=== PATIENT | male | born 1970 | race Caucasian/White ===

== ENCOUNTER 2022-05-16 15:05 | Emergency (ER) | payer OTHER, MEDICAID, SELFPAY ==
[2022-05-16 15:12] VITALS: BP 161/89; PULSE 80; RESP 18; TEMP 36.8; O2SAT 97; BMI 23.7
--- NOTE | 2022-05-16 18:30 | PC.NURSE ---
pt had peeled his bandages off, new bandage placed.
--- NOTE | 2022-05-16 21:01 | ED_ITS ---
HPI - Skin/Abscess/Foreign Bdy General Chief complaint: Skin/Abscess/Foreign Body Stated complaint: Does not feel good, wounds right, thinks infected Time Seen by Provider: 05/16/22 21:00 Source: patient Mode of arrival: Ambulatory Limitations: no limitations History of Present Illness HPI narrative: Patient is a 52-year-old male who presents with right ring finger swelling and pain. 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 He denies any fever but feels like his hand may have had fever and itself. He is able to move his finger but it does hurt. His hand is quite swollen his hands are extremely dirty. He does not go to doctors. He denies fever chills chest pain or shortness of breath. It is weeping serosanguineous fluid like there was a blister that has now opened. He says that happened in the waiting room. Related Data Previous Rx's Medication Instructions Recorded doxycycline hyclate 100 mg capsule 100 mg PO BID #20 caps 05/16/22 Allergies Allergy/AdvReac Type Severity Reaction Status Date / Time acetaminophen [From Tylenol] Allergy Verified 05/16/22 21:12 aspirin Allergy Verified 05/16/22 21:13 Penicillins Allergy Verified 05/16/22 21:12 Review of Systems Review of Systems Narrative: GENERAL: Denies chills,fever HEENT: Denies throat pain RESPIRATORY: Denies dyspnea, cough, wheezing CARDIOVASCULAR: Denies chest pain, palpitations GASTROINTESTINAL: Denies nausea, vomiting MUSCULOSKELETAL: Denies extremity pain, injury SKIN: See HPI NEUROLOGIC: Denies weakness, dizziness, headache, numbness 8 point review of systems is negative except for those stated above and HPI Patient History Social History Smoking Status: Current every day smoker Smoking Status: Current every day smoker Substance Use Type: marijuana, heroin, opiates, methamphetamine and other Exam Initial Vital Signs Initial Vital Signs: Vital Signs Temperature 98.3 F 05/16/22 15:12 Pulse Rate 80 05/16/22 15:12 Respiratory Rate 18 05/16/22 15:12 Blood Pressure 161/89 H 05/16/22 15:12 Pulse Oximetry 97 05/16/22 15:12 Oxygen Delivery Method 05/16/22 15:12 GENERAL: 52-year-old male appears older than stated age HEENT: Head atraumatic,EOMI, pupils reactive, face symmetric, moist mucous membranes CARDIOVASCULAR: Regular rate and rhythm without murmurs, rubs or gallops. RESPIRATORY: Breath sounds equal bilaterally, no wheezes rales or rhonchi. ABDOMEN: Soft, nontender. Normoactive bowel sounds all 4 quadrants. No guarding or rebound. EXTREMITIES: Normal range of motion, no clubbing or edema. Neurovascularly intact NEUROLOGICAL: Alert and oriented x4. SKIN: Right hand swollen mild erythema extremely dirty, right index finger blister noted flex and extend but limited due to pain. Cap refill less than 2 seconds, serosanguineous fluid noted from psych Course Orders Ordered: ED Orders 05/16/22 21:05 XR hand RT min 3V Stat 05/16/22 21:20 Lactate (Lactic Acid) Stat 05/16/22 21:25 CBC Auto Diff [Complete Blood Count AUTO DIFF] Stat CMP [Comprehensive Metabolic Panel] Stat Procalcitonin Stat Discontinued Medications Diphtheria/Tetanus/Acell Pertussis (Tet,Diph,Pertuss(Acell),Vac/Pf 0.5 Ml Syringe) 0.5 ml IM .ONCE ONE Stop: 05/16/22 21:09 Last Admin: 05/16/22 21:34 Dose: 0.5 ml Documented By: MARLYN Doxycycline Hyclate (Doxycycline Hyclate 100 Mg Tablet) 100 mg PO NOW ONE Stop: 05/16/22 22:30 Last Admin: 05/16/22 22:41 Dose: 100 mg Documented By: MARLYN Vital Signs Vital signs: Vital Signs - 8 hr 05/16/22 22:50 Pulse Rate 80 Respiratory Rate 18 Blood Pressure 158/88 H Pulse Oximetry 98 Oxygen Delivery Method Room Air MDM - Skin/Abscess/Foreign Bdy Lab Data Result diagrams: 05/16/22 21:25 05/16/22 21:25 Labs: Lab Results 05/16/22 05/16/22 05/16/22 Range/Units 21:20 21:25 21:25 WBC 15.6 H (4.5-11.0) X10^3/uL RBC 4.60 (4.5-5.9) X10^6/uL Hgb 14.9 (13.5-17.5) g/dL Hct 43.5 (41-53) % MCV 94.5 (80-100) fL MCH 32.3 (26-34) PG MCHC 34.2 (30-36) % RDW 13.0 (11.6-14.8) % Plt Count 344 (150-400) X10^3/uL Neut % (Auto) 76.1 H (50-75) % Lymph % (Auto) 11.7 L (25-40) % [place] % (Auto) 9.2 (3-14) % Eos % (Auto) 2.6 (2-4) % Baso % (Auto) 0.4 (0-2) % Neut # (Auto) 80681 H (8895-6106) /uL Lymph # (Auto) 1800 (6158-7793) /uL [place] # (Auto) 1400 H (0-900) /uL Eos # (Auto) 400 (0-450) /uL Baso # (Auto) 100 (0-100) /uL Sodium 137 (137-145) mmol/L Potassium 4.2 (3.4-5.1) mmol/L Chloride 101 (98-107) mmol/L Carbon Dioxide 28 (22-32) mmol/L BUN 12 (9-20) mg/dL Creatinine 0.54 L (0.66-1.25) mg/dL Estimated GFR > 60 (>60) mL/min BUN/Creatinine Ratio 22.2 H (6-22) Glucose 92 (70-100) mg/dL Lactate 1.1 (0.7-2.1) mmol/L Calcium 9.6 (8.4-10.2) mg/dL Total Bilirubin 0.8 (0.2-1.3) mg/dL AST 73 H (17-59) IU/L ALT 101 H (<50) IU/L Alkaline Phosphatase 106 (38-126) U/L Total Protein 8.2 (6.3-8.2) g/dL Albumin 4.5 (3.5-5.0) g/dL Globulin 3.7 (1.7-4.1) g/dL Albumin/Globulin Ratio 1.2 (1.0-2.8) Procalcitonin (<0.5) ng/mL 05/16/22 Range/Units 21:25 WBC (4.5-11.0) X10^3/uL RBC (4.5-5.9) X10^6/uL Hgb (13.5-17.5) g/dL Hct (41-53) % MCV (80-100) fL MCH (26-34) PG MCHC (30-36) % RDW (11.6-14.8) % Plt Count (150-400) X10^3/uL Neut % (Auto) (50-75) % Lymph % (Auto) (25-40) % [place] % (Auto) (3-14) % Eos % (Auto) (2-4) % Baso % (Auto) (0-2) % Neut # (Auto) (0345-6331) /uL Lymph # (Auto) (4071-5685) /uL [place] # (Auto) (0-900) /uL Eos # (Auto) (0-450) /uL Baso # (Auto) (0-100) /uL Sodium (137-145) mmol/L Potassium (3.4-5.1) mmol/L Chloride (98-107) mmol/L Carbon Dioxide (22-32) mmol/L BUN (9-20) mg/dL Creatinine (0.66-1.25) mg/dL Estimated GFR (>60) mL/min BUN/Creatinine Ratio (6-22) Glucose (70-100) mg/dL Lactate (0.7-2.1) mmol/L Calcium (8.4-10.2) mg/dL Total Bilirubin (0.2-1.3) mg/dL AST (17-59) IU/L ALT (<50) IU/L Alkaline Phosphatase (38-126) U/L Total Protein (6.3-8.2) g/dL Albumin (3.5-5.0) g/dL Globulin (1.7-4.1) g/dL Albumin/Globulin Ratio (1.0-2.8) Procalcitonin 0.12 (<0.5) ng/mL Imaging Data Extremity x-ray #1: Radiologist's Impression: LATOYA Genao [id number] XRay Report Signed Patient: Rory Hickman MR#: [id number] : 1970 Acct:[id number] Age/Sex: 52 / M Date of Service: 05/16/22 Loc: ED Accession Number: [id number] ?? Procedure: XR hand RT min 3V Ordering Provider: Lizbeth Arevalo D.O. PROCEDURE:? XR HAND RT MIN 3V ? INDICATIONS:? ring finger swelling pain ?injury ? TECHNIQUE:? Three views of the right hand acquired.? ? COMPARISON:? None. ? FINDINGS:? ? Bones:? No acute fractures or dislocations.? There is a corticated ossicle cons istent with a prior chronic fracture of the radial styloid.? Carpal bones are normally aligned.? No suspicious bony lesions.? ? Soft tissues:? No radiopaque foreign bodies.? No suspicious soft tissue calcifications.? ? ? IMPRESSION:? ? 1. No acute fractures or radiopaque foreign bodies. ? ? Dictated by: Cedrick Patel M.D. on 05/16/2022 at 23:01 ? [facility] Narrative Medical decision making narrative: At this time patient's hand is swollen he has an obvious wound on his finger. He able to move it head does hurt a little some possible early flexor tenosynovitis. He is able to move it. X-rays reviewed by myself no gross fo reign body or bony abnormality. He is not septic he is afebrile normal lactic acid and procalcitonin. I have discussed with him it very bluntly need for close monitoring and to return if it is getting worse at all. He understands this. I discussed all findings with the patient , Education has been performed regarding treatment plan, diagnosis, warning signs and symptoms and all concerns have been addressed. Verbally agree with and understood all of the above. Discharge Plan Departure Patient Disposition: Home Clinical Impression: Cellulitis Instructions: DI for Cellulitis -- Adult Activity Restrictions/Additional Instructions: *You have been diagnosed with cellulitis of finger *What to do: Please keep hand clean with soap and water. Monitor very closely this can become a very serious infection requiring surgery. At this time it does not. Keep hand elevated. Apply ice 20-30 minutes at a time. *Continue to take medications as directed Doxycycline 100 mg twice a day for 10 days--> SENT TO [facility] Motrin 600 mg every 6 hours if needed for mild moderate pain *Follow up with your primary care provider in 2-3 days or call [phone] *Return to ER if you should have increased pain increased swelling inability to move, fever or any new, worsening or concerning symptoms Prescriptions: New doxycycline hyclate 100 mg capsule 100 mg PO BID Qty: 20 0RF Visit Report Forms: Patient Portal/API
--- NOTE | 2022-05-16 21:05 | DI.RAD.S_ITS ---
PROCEDURE: XR HAND RT MIN 3V INDICATIONS: ring finger swelling pain ?injury TECHNIQUE: Three views of the right hand acquired. COMPARISON: None. FINDINGS: Bones: No acute fractures or dislocations. There is a corticated ossicle consistent with a prior chronic fracture of the radial styloid. Carpal bones are normally aligned. No suspicious bony lesions. Soft tissues: No radiopaque foreign bodies. No suspicious soft tissue calcifications. IMPRESSION: 1. No acute fractures or radiopaque foreign bodies. Dictated by: Cedrick Patel M.D. on 05/16/2022 at 23:01 Approved by: Cedrick Patel M.D. on 05/16/2022 at 23:04
[2022-05-16] MEDS: TET,DIPH,PERTUSS(ACELL),VAC/PF 0.5 ML SYRINGE IM (21:34)
[2022-05-16 21:37] LABS: Add Manual Diff / Slide Review NO; Basophils Absolute Auto 100 /uL (0-100); Basophils Percent Auto 0.4 % (0-2); Eosinophils Absolute Auto 400 /uL (0-450); Eosinophils Percent Auto 2.6 % (2-4); Hematocrit 43.5 % (41-53); Hemoglobin 14.9 g/dL (13.5-17.5); Lymphocytes Absolute Auto 1800 /uL (1100-4500); Lymphocytes Percent Auto 11.7 % (25-40); Mean Corpuscular HGB Conc 34.2 % (30-36); Mean Corpuscular Hemoglobin 32.3 PG (26-34); Mean Corpuscular Volume 94.5 fL (80-100); Monocytes Absolute Auto 1400 /uL (0-900); Monocytes Percent Auto 9.2 % (3-14); Neutrophils Absolute Auto 11900 /uL (1500-7000); Neutrophils Percent Auto 76.1 % (50-75); Platelet Count 344 X10^3/uL (150-400); White Blood Cell Count 15.6 X10^3/uL (4.5-11.0)
[2022-05-16 21:51] LABS: Alanine Aminotransferase 101 IU/L (<50); Albumin 4.5 g/dL (3.5-5.0); Albumin Globulin Ratio 1.2 (1.0-2.8); Alkaline Phosphatase 106 U/L (38-126); Aspartate Aminotransferase 73 IU/L (17-59); BUN Creatinine Ratio 22.2 (6-22); Bilirubin Total 0.8 mg/dL (0.2-1.3); Blood Urea Nitrogen 12 mg/dL (9-20); Calcium 9.6 mg/dL (8.4-10.2); Carbon Dioxide 28 mmol/L (22-32); Chloride 101 mmol/L (98-107); Estimated Glomerular Filt Rate > 60 mL/min (>60); Globulin 3.7 g/dL (1.7-4.1); Glucose 92 mg/dL (70-100); HEMOLYSIS 31 (0-50); Potassium 4.2 mmol/L (3.4-5.1); Sodium 137 mmol/L (137-145); Total Protein 8.2 g/dL (6.3-8.2)
[2022-05-16 22:05] LABS: Lactate (Lactic Acid) 1.1 mmol/L (0.7-2.1)
[2022-05-16 22:06] LABS: Procalcitonin 0.12 ng/mL (<0.5)
[2022-05-16] MEDS: DOXYCYCLINE HYCLATE 100 MG TABLET PO (22:41)
[2022-05-16 22:50] VITALS: BP 158/88; PULSE 80; RESP 18; O2SAT 98
== END 2022-05-16 22:51 | disposition home or self-care (01) ==
PROVIDERS: Emergency Provider Emergency Medicine
DX: L03.011 Cellulitis of right finger (principal); Z23 Encounter for immunization
CPT/HCPCS: 73130; 80053; 83605; 84145; 85025; 90471; 99283; 90715

== ENCOUNTER 2022-06-24 18:06 | Emergency (ER) | payer OTHER, MEDICAID, SELFPAY ==
[2022-06-24 18:10] VITALS: BP 135/82; PULSE 112; RESP 16; TEMP 36.9; O2SAT 100; BMI 23.7
== END 2022-06-24 19:47 | disposition left against medical advice (07) ==
PROVIDERS: Emergency Provider Emergency Medicine
DX: L08.9 Local infection of the skin and subcutaneous tissue, unspecified (principal)
CPT/HCPCS: 99281

== ENCOUNTER 2022-06-24 21:36 | Emergency (ER) | payer OTHER, MEDICAID, SELFPAY ==
--- NOTE | 2022-06-24 21:50 | ED.GENADULT ---
HPI - General Adult General Chief complaint: Skin/Abscess/Foreign Body Stated complaint: lt leg wound Time Seen by Provider: 06/24/22 21:50 History of Present Illness HPI narrative: 52-year-old male smoker with history of IV drug abuse but denies any use in the past 5 months or so presents with fever, chills and left lower extremity pain, swelling, redness and drainage. He states it started a few days ago when he bumped it on something at home and subsequently has become increasingly painful and swollen from the foot up to his knee. He is not dizzy nor weak or lightheaded. He denies any runny nose, sore throat or cough. He denies any chest pain, shortness of breath or cough. He denies abdominal pain, constipation or diarrhea. He has pain in his leg that is worse with palpation or walking. He has had prior skin infections. Related Data Previous Rx's Medication Instructions Recorded doxycycline hyclate 100 mg capsule 100 mg PO BID #20 caps 05/16/22 Allergies Allergy/AdvReac Type Severity Reaction Status Date / Time acetaminophen [From Tylenol] Allergy Verified 06/24/22 21:55 aspirin Allergy Verified 06/24/22 21:55 Penicillins Allergy Verified 06/24/22 21:55 Review of Systems Review of Systems Narrative: GENERAL: See HPI HEENT: Denies sinus pain, ear pain, sore throat, difficulty swallowing, dizziness. RESPIRATORY: Denies dyspnea, cough, wheezing, hemoptysis, sputum. CARDIOVASCULAR: Denies chest pain, palpitations, orthopnea, edema, GASTROINTESTINAL: Denies nausea, vomiting, abdominal pain, diarrhea, constipation, melena. : Denies dysuria, frequency, incontinence, hematuria, urinary retention. MUSCULOSKELETAL: see HPI SKIN: see HPI NEUROLOGIC: Denies weakness, headache, numbness, change in speech, confusion, seizures, incoordination. PSYCHIATRIC: No concerning psychosocial issues. 12 point review of systems is negative except for those stated above Patient History Social History Smoking Status: Current every day smoker Smoking Status: Current every day smoker Substance Use Type: marijuana, heroin, opiates, methamphetamine and other Exam Narrative Exam Narrative: GENERAL: [52] year old patient appears older than stated age. Well-developed patient, in mild distress. HEAD: Atraumatic. Normocephalic. EYES: Pupils equal round and reactive. Extraocular motions intact. No scleral icterus. No injection or drainage. ENT: poor dentition throughoutNose without bleeding, purulent drainage. Throat without erythema, tonsillar hypertrophy or exudate. Airway patent. NECK: Trachea midline. Non tender CARDIOVASCULAR: tachycardic but regularrhythm without murmurs, gallops, or rubs. RESPIRATORY: Clear to auscultation. Breath sounds equal bilaterally. No wheezes, rales, or rhonchi. GASTROINTESTINAL: Abdomen soft, non-tender, nondistended. EXTREMITIES: left lower extremity with impressive swelling from the dorsum of the foot to the knee with erythema and warmth, few skin breaks, perhaps ulcerations with drainage which have been swabbed for culture. BACK: Nontender without deformity or crepitance. No flank tenderness. NEURO: AOx3. SKIN: No rash or erythema of visible areas Initial Vital Signs Initial Vital Signs: Vital Signs Temperature 100.1 F H 06/24/22 21:51 Pulse Rate 120 H 06/24/22 21:51 Respiratory Rate 18 06/24/22 21:51 Blood Pressure 134/81 06/24/22 21:51 Pulse Oximetry 97 06/24/22 21:51 Oxygen Delivery Method 06/24/22 21:51 Course Orders Ordered: ED Orders 06/24/22 21:07 COVID19 -Nasal RAPID/Pre-Proc Stat 06/24/22 21:53 Chest [XR chest 1V] Stat 06/24/22 21:59 Wound Culture and Gram Stain Stat 06/24/22 22:07 Complete Blood Count AUTO DIFF Stat Comprehensive Metabolic Panel Stat Lactate (Lactic Acid) Stat 06/24/22 22:55 Blood Culture Stat 06/24/22 23:12 Urine Drug Screen, Rapid Stat 06/24/22 23:18 Education, smoking cessation ONGOING 06/25/22 05:00 Complete Blood Count AUTO DIFF DAILY Comprehensive Metabolic Panel DAILY Magnesium DAILY 06/26/22 05:00 Complete Blood Count AUTO DIFF DAILY Comprehensive Metabolic Panel DAILY Magnesium DAILY 06/27/22 05:00 Complete Blood Count AUTO DIFF DAILY Comprehensive Metabolic Panel DAILY Magnesium DAILY Acetaminophen (Acetaminophen 325 Mg Tablet) 650 mg PO Q6H PRN PRN Reason: Fever/Mild Pain (1-3) Hydrocodone Bitart/Acetaminophen (Hydrocodone/Acet 5/325 Tablet) 1 tab PO Q3H PRN PRN Reason: Pain, Moderate (4-6) Docusate Sodium (Docusate 100 Mg Capsule) 100 mg PO BID REPLACED BY [facility] Enoxaparin Sodium (Enoxaparin 40 Mg/0.4 Ml Syringe) 40 mg SUBCUT DAILY REPLACED BY [facility] Lactated Ringer's (Lactated Ringers) 2,381.37 mls @ 793.79 mls/hr 30 ml/kg infuse over 3 hr (2381.37 ml) IV NOW ONE Stop: 06/25/22 01:02 Last Admin: 06/24/22 22:23 Dose: 793.79 mls/hr Documented By: NR Vancomycin HCl/Dextrose (Vancomycin) 1,500 mg in 300 mls @ 200 mls/hr IV NOW ONE Stop: 06/24/22 23:32 Last Admin: 06/24/22 22:26 Dose: 200 mls/hr Documented By: NR Levofloxacin (Levaquin) 750 mg in 150 mls @ 100 mls/hr IV NOW ONE Stop: 06/24/22 23:32 Lactated Ringer's (Lactated Ringers) 1,000 mls @ 100 mls/hr IV CONT GILBERT Naloxone HCl (Naloxone 0.4 Mg/Ml Vial) 0.2 mg IV Q2MIN PRN PRN Reason: Opiate Reversal Ondansetron HCl (Ondansetron 4 Mg Odt) 4 mg PO Q6H PRN PRN Reason: Nausea And Vomiting Oxycodone HCl (Oxycodone Ir 10 Mg Tablet) 10 mg PO Q3H PRN PRN Reason: Pain, Severe (7-10) Discontinued Medications Ketorolac Tromethamine (Ketorolac 30 Mg/Ml Vial) 15 mg IV NOW ONE Stop: 06/24/22 22:04 Last Admin: 06/24/22 22:35 Dose: 15 mg Vital Signs Vital signs: Vital Signs - 8 hr 06/24/22 21:51 Temperature 100.1 F H Pulse Rate 120 H Respiratory Rate 18 Blood Pressure 134/81 Pulse Oximetry 97 Oxygen Delivery Method Room Air Medical Decision Making Lab Data Result diagrams: 06/24/22 22:07 06/24/22 22:07 Labs: Lab Results 06/24/22 06/24/22 06/24/22 Range/Units 21:07 22:07 22:07 WBC 9.2 (4.5-11.0) X10^3/uL RBC 3.59 L (4.5-5.9) X10^6/uL Hgb 11.6 L (13.5-17.5) g/dL Hct 33.5 L (41-53) % MCV 93.3 (80-100) fL MCH 32.4 (26-34) PG MCHC 34.8 (30-36) % RDW 12.9 (11.6-14.8) % Plt Count 376 (150-400) X10^3/uL Neut % (Auto) 63.5 (50-75) % Lymph % (Auto) 21.4 L (25-40) % [place] % (Auto) 12.4 (3-14) % Eos % (Auto) 1.6 L (2-4) % Baso % (Auto) 1.1 (0-2) % Neut # (Auto) 5800 (9105-7901) /uL Lymph # (Auto) 2000 (5595-1940) /uL [place] # (Auto) 1100 H (0-900) /uL Eos # (Auto) 100 (0-450) /uL Baso # (Auto) 100 (0-100) /uL Sodium 139 (137-145) mmol/L Potassium 4.3 (3.4-5.1) mmol/L Chloride 101 (98-107) mmol/L Carbon Dioxide 30 (22-32) mmol/L BUN 17 (9-20) mg/dL Creatinine 0.77 (0.66-1.25) mg/dL Estimated GFR > 60 (>60) mL/min BUN/Creatinine Ratio 22.1 H (6-22) Glucose 111 H (70-100) mg/dL Lactate (0.7-2.1) mmol/L Calcium 8.5 (8.4-10.2) mg/dL Total Bilirubin 0.3 (0.2-1.3) mg/dL AST 46 (17-59) IU/L ALT 59 H (<50) IU/L Alkaline Phosphatase 102 (38-126) U/L Total Protein 7.0 (6.3-8.2) g/dL Albumin 3.5 (3.5-5.0) g/dL Globulin 3.5 (1.7-4.1) g/dL Albumin/Globulin Ratio 1.0 (1.0-2.8) SARS-CoV-2 (PCR) Negative (Negative) 06/24/22 Range/Units 22:07 WBC (4.5-11.0) X10^3/uL RBC (4.5-5.9) X10^6/uL Hgb (13.5-17.5) g/dL Hct (41-53) % MCV (80-100) fL MCH (26-34) PG MCHC (30-36) % RDW (11.6-14.8) % Plt Count (150-400) X10^3/uL Neut % (Auto) (50-75) % Lymph % (Auto) (25-40) % [place] % (Auto) (3-14) % Eos % (Auto) (2-4) % Baso % (Auto) (0-2) % Neut # (Auto) (3070-8350) /uL Lymph # (Auto) (6652-0888) /uL [place] # (Auto) (0-900) /uL Eos # (Auto) (0-450) /uL Baso # (Auto) (0-100) /uL Sodium (137-145) mmol/L Potassium (3.4-5.1) mmol/L Chloride (98-107) mmol/L Carbon Dioxide (22-32) mmol/L BUN (9-20) mg/dL Creatinine (0.66-1.25) mg/dL Estimated GFR (>60) mL/min BUN/Creatinine Ratio (6-22) Glucose (70-100) mg/dL Lactate 1.8 (0.7-2.1) mmol/L Calcium (8.4-10.2) mg/dL Total Bilirubin (0.2-1.3) mg/dL AST (17-59) IU/L ALT (<50) IU/L Alkaline Phosphatase (38-126) U/L Total Protein (6.3-8.2) g/dL Albumin (3.5-5.0) g/dL Globulin (1.7-4.1) g/dL Albumin/Globulin Ratio (1.0-2.8) SARS-CoV-2 (PCR) (Negative) Imaging Data Chest x-ray: Attestation: I personally reviewed and interpreted this imaging study as follows: My Impression: possible LLL infiltrate MDM Narrative Medical decision making narrative: CC: 52M hx IVDA with LLE pain, swelling, redness, fever and chills COMPLICATING CO-MORBIDITIES: IVDA DATA COLLECTED FROM: Patient MEDICAL RECORDS REVIEWED: Recent ED visit for hand cellulitis DIFFERENTIAL CONSIDERED: Cellulitis vs. abscess vs. DVT vs. other EXAM DOCUMENTED ABOVE, PERTINENT FINDINGS INCLUDE: left lower extremity painful, red and swollen, erythematous from foot to knee with possible lymphangitis extending proximally. no fluctuance, crepitance or necrotic tissue Tachycardic LAB TEST RESULTS INDEPENDENTLY REVIEWED ABOVE. PERTINENT FINDINGS: no significant leukocytosis or left shift, lactate normal at 1.8 IMAGING STUDIES INDEPENDENTLY REVIEWED: Possible LLL infiltrate TREATMENTS: sepsis fluids ordered 30 milliliters/kilogram, Toradol, vancomycin and Levaquin Discharge Plan Departure Patient Disposition: Admitted As Inpatient Clinical Impression: Sepsis, Cellulitis of left leg
[2022-06-24 21:51] VITALS: BP 134/81; PULSE 120; RESP 18; TEMP 37.8; O2SAT 97; BMI 23.7
--- NOTE | 2022-06-24 21:53 | DI.RAD.S_ITS ---
PROCEDURE: XR CHEST 1V INDICATIONS: sepsis TECHNIQUE: One view of the chest was acquired. COMPARISON: None. FINDINGS: Surgical changes and devices: None. Lungs and pleura: There are a few indistinct left basilar opacities peripherally. No pleural effusions or pneumothorax. Mediastinum: Mediastinal contours appear normal. Heart size is normal. Bones and chest wall: No suspicious bony lesions. Overlying soft tissues appear unremarkable. IMPRESSION: 1. Indistinct peripheral left basilar opacities are nonspecific but may represent pneumonia given clinical history. Dictated by: Cedrick Patel M.D. on 06/24/2022 at 22:52 Approved by: Cedrick Patel M.D. on 06/24/2022 at 22:53
[2022-06-24 22:07] VITALS: PULSE 106; O2SAT 98
[2022-06-24 22:11] VITALS: BP 117/57; PULSE 105; O2SAT 97
[2022-06-24] MEDS: LACTATED RINGERS 2,381.37 ML 793.79 ML IV (22:23)
[2022-06-24] MEDS: VANCOMYCIN 1,500 MG/300 ML PIGGYBACK 200 MG IV (22:26)
[2022-06-24 22:27] LABS: COVID19 -Nasal RAPID Negative (Negative)
[2022-06-24 22:29] LABS: Add Manual Diff / Slide Review NO; Basophils Absolute Auto 100 /uL (0-100); Basophils Percent Auto 1.1 % (0-2); Eosinophils Absolute Auto 100 /uL (0-450); Eosinophils Percent Auto 1.6 % (2-4); Hematocrit 33.5 % (41-53); Hemoglobin 11.6 g/dL (13.5-17.5); Lymphocytes Absolute Auto 2000 /uL (1100-4500); Lymphocytes Percent Auto 21.4 % (25-40); Mean Corpuscular HGB Conc 34.8 % (30-36); Mean Corpuscular Hemoglobin 32.4 PG (26-34); Mean Corpuscular Volume 93.3 fL (80-100); Monocytes Absolute Auto 1100 /uL (0-900); Monocytes Percent Auto 12.4 % (3-14); Neutrophils Absolute Auto 5800 /uL (1500-7000); Neutrophils Percent Auto 63.5 % (50-75); Platelet Count 376 X10^3/uL (150-400); Red Blood Cell Count 3.59 X10^6/uL (4.5-5.9); Red Cell Distribution Width 12.9 % (11.6-14.8); White Blood Cell Count 9.2 X10^3/uL (4.5-11.0)
[2022-06-24 22:30] VITALS: BP 120/58; PULSE 105; O2SAT 96
[2022-06-24] MEDS: KETOROLAC 30 MG/ML VIAL 15 MG IV (22:35)
[2022-06-24 22:41] LABS: Lactate (Lactic Acid) 1.8 mmol/L (0.7-2.1)
[2022-06-24 22:42] LABS: Alanine Aminotransferase 59 IU/L (<50); Albumin 3.5 g/dL (3.5-5.0); Alkaline Phosphatase 102 U/L (38-126); Aspartate Aminotransferase 46 IU/L (17-59); BUN Creatinine Ratio 22.1 (6-22); Bilirubin Total 0.3 mg/dL (0.2-1.3); Blood Urea Nitrogen 17 mg/dL (9-20); Calcium 8.5 mg/dL (8.4-10.2); Carbon Dioxide 30 mmol/L (22-32); Chloride 101 mmol/L (98-107); Estimated Glomerular Filt Rate > 60 mL/min (>60); Globulin 3.5 g/dL (1.7-4.1); Glucose 111 mg/dL (70-100); HEMOLYSIS < 15 (0-50); Potassium 4.3 mmol/L (3.4-5.1); Sodium 139 mmol/L (137-145)
[2022-06-24 23:00] VITALS: BP 124/59; PULSE 108; O2SAT 97
--- NOTE | 2022-06-24 23:03 | PC.NURSE ---
pt is worried about his dogs in his vehicle. pt states he will need to step outside to let them use the restroom. pt informed he is being admitted to the hospital and that he will not be able to step outside to let his dogs out of his vehicle, he needs to make arrangements to have someone watch his dogs while he is here. pt is contemplating who would be able to take care of his animals.
[2022-06-24 23:30] VITALS: BP 124/58; PULSE 98; O2SAT 95
[2022-06-24 23:54] LABS: Procalcitonin 0.13 ng/mL (<0.5)
[2022-06-25] VITALS: BP 117/53; PULSE 100; O2SAT 96
--- NOTE | 2022-06-25 00:23 | PC.NURSE ---
pt has decided he needs to take his dogs to a safe place for a few days in [place]. pt understands he is leaving AM and signed consent form. He states he will be back at 10am in the morning. pt refused to have dogs picked up by police and housed at the [facility] for the short stay while he is here.
[2022-06-25 00:53] LABS: Ur Creatinine Normal (Normal); Ur Specific Gravity Normal (Normal); Urine Tetrahydrocannabinol Positive (Negative); Urine pH Normal (Normal)
[2022-06-25 00:54] LABS: UR Morphine/Opiate cutoff 300 Negative (Negative); Urine Amphetamines Positive (Negative); Urine Barbiturates Negative (Negative); Urine Benzodiazepines Negative (Negative); Urine Cocaine Negative (Negative); Urine MDMA Negative (Negative); Urine Methadone Negative (Negative); Urine Methamphetamines Positive (Negative); Urine Oxycodone Negative (Negative); Urine Phencyclidine Negative (Negative); Urine Tricyclic Antidepressant Negative (Negative)
== END 2022-06-25 00:26 | disposition admitted as inpatient to this hospital (09) ==
PROVIDERS: Emergency Provider Emergency Medicine; Referring Provider Emergency Medicine; Visit Provider Nurse Practitioner Family
DX: L03.116 Cellulitis of left lower limb (principal); A41.9 Sepsis, unspecified organism; Z20.822 Contact with and (suspected) exposure to COVID-19
CPT/HCPCS: 36415; 71045; 80053; 80305; 83605; 84145; 85025; 87040; 87070; 87075; 87077; 87147; 87186; 87205; 87635; 96365; 96366; 96375; 99283; 99284; C9803; J1885

== ENCOUNTER 2022-06-25 18:14 | Observation (INO) | payer OTHER, MEDICAID, SELFPAY ==
[2022-06-25 18:18] VITALS: BP 144/69; PULSE 109; RESP 18; TEMP 37.1; O2SAT 98; BMI 23.7
--- NOTE | 2022-06-25 19:36 | DI.US.S_ITS ---
PROCEDURE: US PERIPH VENOUS LOW EXTREM LT INDICATIONS: pain/swelling TECHNIQUE: Real-time imaging, as well as color and pulse Doppler interrogation, were performed of the lower extremity deep veins from the inguinal ligament to the popliteal fossa. COMPARISON: None. FINDINGS: The common femoral, femoral and popliteal veins are normally compressible, and free of intraluminal thrombus. Color and pulse Doppler demonstrate normal phasic intraluminal flow. There is normal augmentation response to distal compression maneuver. IMPRESSION: 1. No evidence of deep venous thrombosis in the left lower extremity. Dictated by: Cedrick Patel M.D. on 06/25/2022 at 20:39 Approved by: Cedrick Patel M.D. on 06/25/2022 at 20:40
--- NOTE | 2022-06-25 19:39 | ED_ITS ---
HPI - Wound/Laceration General Chief Complaint: Wound/Laceration Stated Complaint: Says septic, fever, L leg pain/swollen Time Seen by Provider: 06/25/22 19:28 Source: patient and family Mode of arrival: Family Vehicle Limitations: no limitations History of Present Illness HPI narrative: Patient here with sister. Here for left leg pain and swelling and drainage. Ongoing for the past 8 days. Patient was here last night and was admitted but left against medical advice around midnight. Blood cultures were done already. Wound cultures were done as well. No new changes since leaving against medical advice yesterday. No fever chills. Patient was started on vancomycin and Levaquin. Sepsis fluids ordered last night as well. Chest x-ray did show possible left lower infiltrate. Denies any cough cold or congestion. Onset (ago): day(s) Location: other (Left leg) Extremity Location: Left: lower leg, ankle and foot Related Data Previous Rx's Medication Instructions Recorded doxycycline hyclate 100 mg capsule 100 mg PO BID #20 caps 05/16/22 Allergies Allergy/AdvReac Type Severity Reaction Status Date / Time acetaminophen [From Tylenol] Allergy Verified 06/24/22 21:55 aspirin Allergy Verified 06/24/22 21:55 Penicillins Allergy Verified 06/24/22 21:55 Review of Systems Review of Systems Narrative: GENERAL: negative chills, fatigue, malaise, fever, sweats. HEENT: negative sinus pain, ear pain, sore throat RESPIRATORY: negative dyspnea, cough CARDIOVASCULAR: negative chest pain, palpitations GASTROINTESTINAL: negative nausea, vomiting, abdominal pain : negative dysuria, frequency, hematuria MUSCULOSKELETAL: Positive muscle or bony pain SKIN: negative rash, skin lesions, positive erythema and drainage NEUROLOGIC: negative weakness, numbness ROS Unobtainable: All systems reviewed & are unremarkable except as noted in HPI and below Patient History Social History household members: none Smoking Status: Current every day smoker alcohol intake: former Smoking Status: Current every day smoker Substance Use Type: marijuana, heroin, opiates, methamphetamine and other Exam Narrative Exam Narrative: GENERAL: in no distress, not toxic not dyspneic, pants shoes and socks removed HEAD: Normocephalic. EYES: Pupils equal round No scleral icterus. ENT: Mucous membranes moist. NECK: Trachea midline. CARDIOVASCULAR: Regular rate and rhythm without murmurs RESPIRATORY: Clear to auscultation. Breath sounds equal bilaterally. No wheezes, rales, or rhonchi. GASTROINTESTINAL: Abdomen soft, non-tender EXTREMITIES: No gross deformities. Examination left lower extremity, foot warm soft and pink with palpable pedal pulse with brisk cap refills with light touch intact to foot and toes. There is diffuse ulcerations on the lower extremity. Does not extend above the knee. There is circumferential erythema and edema the lower extremity. There is serous drainage from some of the ulcerations. No crepitus. No pain out of portion to exam. BACK: No flank tenderness. NEURO: AOx4. SKIN: Warm and dry PSYCH: Not anxious, is cooperative Initial Vital Signs Initial Vital Signs: Vital Signs Temperature 98.8 F 06/25/22 18:18 Pulse Rate 109 H 06/25/22 18:18 Respiratory Rate 18 06/25/22 18:18 Blood Pressure 144/69 H 06/25/22 18:18 Pulse Oximetry 98 06/25/22 18:18 Oxygen Delivery Method 06/25/22 18:18 Course Course Decision to Admit Date: 06/25/22 Decision to Admit time: 19:42 Orders Ordered: ED Orders 06/25/22 19:36 US periph venous low extrem lt Stat 06/25/22 19:37 COVID19 -Nasal RAPID/Pre-Proc Stat 06/25/22 20:25 CBC Auto Diff [Complete Blood Count AUTO DIFF] Stat CMP [Comprehensive Metabolic Panel] Stat Enoxaparin Sodium (Enoxaparin 40 Mg/0.4 Ml Syringe) 40 mg SUBCUT DAILY [facility] Hydromorphone HCl (Hydromorphone 0.5 Mg Inj) 1 mg IV Q4H PRN PRN Reason: Pain, Moderate (4-6) Levofloxacin (Levaquin) 750 mg in 150 mls @ 100 mls/hr IV Q24H [facility] Last Admin: 06/25/22 21:50 Dose: 100 mls/hr Documented By: OW Vancomycin HCl/Dextrose (Vancomycin) 1,500 mg in 300 mls @ 200 mls/hr IV Q12H [facility] Ketorolac Tromethamine (Ketorolac 30 Mg/Ml Vial) 30 mg IV Q6H [facility] Stop: 06/30/22 20:56 Last Admin: 06/25/22 21:50 Dose: 30 mg Documented By: OW Naloxone HCl (Naloxone 0.4 Mg/Ml Vial) 0.2 mg IV Q2MIN PRN PRN Reason: Opiate Reversal Nicotine (Nicotine 21 Mg Patch) 21 mg TOP DAILY [facility] Last Admin: 06/25/22 21:51 Dose: 21 mg Documented By: OW Ondansetron HCl (Ondansetron 4 Mg/2 Ml Inj) 4 mg IV Q8HR PRN PRN Reason: Nausea And Vomiting Oxycodone HCl (Oxycodone Ir 5 Mg Tablet) 5 mg PO Q3H PRN PRN Reason: Pain, Moderate (4-6) Last Admin: 06/25/22 22:25 Dose: 5 mg Documented By: OW Vancomycin HCl (Vancomycin Per Pharmacy) 1 request MISC NOW ONE Stop: 06/25/22 21:33 Discontinued Medications Vancomycin HCl (Vancomycin Per Pharmacy) 1 request MISC NOW ONE Stop: 06/25/22 19:39 Vital Signs Vital signs: Vital Signs - 8 hr 06/25/22 18:18 Temperature 98.8 F Pulse Rate 109 H Respiratory Rate 18 Blood Pressure 144/69 H Pulse Oximetry 98 Oxygen Delivery Method Room Air MDM - Wound/Laceration Differential Diagnosis Differential diagnosis: Likely other (Cellulitis/DVT) Medical Records Medical records narrative: I did review medical records from last night Lab Data Result diagrams: 06/25/22 20:25 06/25/22 20:25 Labs: Lab Results 06/25/22 Range/Units 19:37 SARS-CoV-2 (PCR) Negative (Negative) Imaging Data Chest x-ray: Radiologist's Impression: [address] [address] XRay Report Signed Patient: Rory Hickman MR#: [id number] : 1970 Acct:[id number] Age/Sex: 52 / M Date of Service: 06/24/22 Loc: ED Accession Number: [id number] ?? Procedure: XR chest 1V Ordering Provider: Darin Garcia D.O. PROCEDURE:? XR CHEST 1V ? INDICATIONS:? sepsis ? TECHNIQUE:? One view of the chest was acquired.? ? COMPARISON:? None. ? FINDINGS:? ? Surgical changes and devices:? None.? ? Lungs and pleura:? There are a few indistinct left basilar opacities peripherally.? No pleural effusions or pneumothorax.? ? Mediastinum:? Mediastinal contours appear normal.? Heart size is normal.? ? Bones and chest wall:? No suspicious bony lesions.? Overlying soft tissues appear unremarkable.? ? IMPRESSION:? ? 1.? Indistinct peripheral left basilar opacities are nonspecific but may represent pneumonia given clinical history. ? ? Dictated by: Cedrick Patel M.D. on 06/24/2022 at 22:52 ? ? Approved by: Cedrick Patel M.D. on 06/24/2022 at 22:53 ? US - DVT: Radiologist's Impression: [address] [address] Ultrasound Report Signed Patient: Rory Hickman MR#: [id number] : 1970 Acct:[id number] Age/Sex: 52 / M Date of Service: 06/25/22 Loc: 90C-1 Accession Number: [id number] ?? Procedure: US periph venous low extrem lt Ordering Provider: Dony Landis MD PROCEDURE:? US PERIPH VENOUS LOW EXTREM LT ? INDICATIONS:? pain/swelling ? TECHNIQUE:? Real-time imaging, as well as color and pulse Doppler interrogation, were performed of the lower extremity deep veins from the inguinal ligament to the popliteal fossa.? ? COMPARISON:? None. ? FINDINGS:? The common femoral, femoral and popliteal veins are normally compressible, and free of intraluminal thrombus.? Color and pulse Doppler demonstrate normal phasic intraluminal flow.? There is normal augmentation response to distal compression maneuver. ? ? IMPRESSION:? ? 1. No evidence of deep venous thrombosis in the left lower extremity. ? ? Dictated by: Cedrick Patel M.D. on 06/25/2022 at 20:39 ? ? Approved by: Cedrick Patel M.D. on 06/25/2022 at 20:40 ? MDM Narrative Medical decision making narrative: Patient here with sister. Here for left leg pain and swelling and drainage. Ongoing for the past 8 days. Patient was here last night and was admitted but left against medical advice around midnight. Blood cultures were done already. Wound cultures were done as well. No new changes since leaving against medical advice yesterday. No fever chills. Patient was started on vancomycin and Levaquin. Sepsis fluids ordered last night as well. Chest x-ray did show possible left lower infiltrate. Denies any cough cold or congestion. After examined history and review of medical records. CBC CMP were ordered, Doppler of the leg was ordered, ordered vancomycin as well. I did speak with patient he does agree for admission tonight. Differential diagnosis includes but not limited to cellulitis/DVT/abscess/necrotizing fasciitis. Appropriate for admission for IV antibiotics I have reviewed laboratory studies and ultrasound results, at this time negative DVT on ultrasound. I did speak with patient a does agree for admission. I did review a CBC and CMP and past medical records. Vancomycin has been started for antibiotics. 8:[address] Boo, hospitalist, will admit patient. Appropriate for admission. Patient high risk for decompensation worsening symptoms were treated at home or discharge. Patient needs IV antibiotics. Discharge Plan Departure Patient Disposition: Admitted As Inpatient Clinical Impression: Cellulitis of left leg Admit Date/Time: 06/25/22 20:20 Admit Provider: Aj Boo
[2022-06-25 20:09] LABS: COVID19 -Nasal RAPID Negative (Negative)
--- NOTE | 2022-06-25 20:25 | PC.NURSE ---
Pt reports injuries to left leg one week ago. Bumped it on a truck hitch and also thinks he may have scratched it on a piece of wood. Left leg is swollen, red, weeping from multiple open areas. Pt reports intermittent numbness/tingling. Leg is elevated as that is most comfortable.
[2022-06-25 20:55] LABS: Add Manual Diff / Slide Review NO; Basophils Absolute Auto 100 /uL (0-100); Basophils Percent Auto 0.8 % (0-2); Eosinophils Absolute Auto 200 /uL (0-450); Hemoglobin 11.5 g/dL (13.5-17.5); Lymphocytes Absolute Auto 1700 /uL (1100-4500); Mean Corpuscular HGB Conc 34.8 % (30-36); Mean Corpuscular Hemoglobin 32.4 PG (26-34); Mean Corpuscular Volume 93.3 fL (80-100); Monocytes Absolute Auto 800 /uL (0-900); Monocytes Percent Auto 10.2 % (3-14); Neutrophils Absolute Auto 4900 /uL (1500-7000); Platelet Count 369 X10^3/uL (150-400); Red Blood Cell Count 3.54 X10^6/uL (4.5-5.9); Red Cell Distribution Width 13.1 % (11.6-14.8); White Blood Cell Count 7.6 X10^3/uL (4.5-11.0)
[2022-06-25 20:59] VITALS: BP 132/72; PULSE 86; RESP 17; O2SAT 98
[2022-06-25 21:11] LABS: Alanine Aminotransferase 60 IU/L (<50); Albumin 3.4 g/dL (3.5-5.0); Alkaline Phosphatase 105 U/L (38-126); Aspartate Aminotransferase 46 IU/L (17-59); BUN Creatinine Ratio 24.6 (6-22); Bilirubin Total 0.3 mg/dL (0.2-1.3); Blood Urea Nitrogen 16 mg/dL (9-20); Calcium 8.5 mg/dL (8.4-10.2); Carbon Dioxide 30 mmol/L (22-32); Chloride 103 mmol/L (98-107); Estimated Glomerular Filt Rate > 60 mL/min (>60); Globulin 3.3 g/dL (1.7-4.1); Glucose 93 mg/dL (70-100); HEMOLYSIS < 15 (0-50); Potassium 4.1 mmol/L (3.4-5.1); Sodium 137 mmol/L (137-145); Total Protein 6.7 g/dL (6.3-8.2)
[2022-06-25 21:20] VITALS: BP 138/77; PULSE 89; RESP 18; TEMP 36.9; O2SAT 95
[2022-06-25 21:21] VITALS: BMI 23.7
[2022-06-25 21:32] VITALS: O2SAT 95
[2022-06-25] MEDS: levoFLOXacin 750 MG/150 ML PIGGYBACK 100 MG IV (21:50)
[2022-06-25] MEDS: KETOROLAC 30 MG/ML VIAL IV (21:50)
[2022-06-25] MEDS: NICOTINE 21 MG PATCH TOP (21:51)
[2022-06-25] MEDS: OXYCODONE IR 5 MG TABLET PO (22:25)
[2022-06-25] MEDS: VANCOMYCIN 1,500 MG/300 ML PIGGYBACK 200 MG IV (23:39)
--- NOTE | 2022-06-25 23:48 | P.HP_ITS ---
History of Present Illness History of Present Illness Date Patient Seen: 06/25/22 Time Patient Seen: 20:00 Chief complaint: Says septic, fever, L leg pain/swollen Narrative: Mr. Hickman is a 52M with [facility] opiate, meth abuse, cigarette smoker who presents to the hospital with left leg pain and swelling for the last 8 days. He noted that over a week ago he bumped his leg into an object which cause an injury to his leg, a few days later the same thing reoccurred with a new bump to the same leg. He then developed subjective fevers, pain, swelling, erythema over the last few days. The swelling has spread throughout the entire lower left leg. He was hesitant to come to the hospital because he states he dislikes doctors and hospitals. He initially presented to the ED yesterday and was recommended admission for cellulitis but left AMA and was given a script for doxycycline. He states he needed to take care of his dogs before being admitted. He returns now feeling no better. He notes a long history of opiate abuse starting as a child in his early teens and he has been on methadone and multiple rehabs previously. He currently self medicates with fentanyl/perc 30s at 10-15 pills daily, which he states allow him to be functioning and continue to work. He smokes a pack of cigarettes a day, and he occasionally uses marijuana and meth. He last smoked fentanyl a few hours ago, and currently he feels he is withdrawing with anxiety, jitters, and he notes poor pain control in his lower extremity. In the ED workup was done, temp noted to be 100.1, heart rate 110s-120s, blood pressure systolic in the 130s. Labs notable for WBC 7.6, hgb 11.5, plts 369. Creatinine 0.69. Gram culture from wound and blood cultures pending. Ultrasound of left leg negative for DVT. He was ordere for antibiotics and he was admitted for further treatment. Social history: uses fentanyl ie perc 30s 10-15 daily, active cigarette use, marijuana use, meth use Family history: mother from cardiac disease Patient History Family & Social History Social History: household members none Prior Living Arrangements Other Safety & Behavioral: Feels Safe in Current Yes Environment Been Physically Hurt or No Threatened By a Person Tobacco & Substance use: Smoking Status Current every day smoker alcohol intake former Substance Use Type marijuana,opiates,other,heroin,methamphetamine Meds Home Medications and Allergies Home Medications Medication Instructions Recorded Confirmed Type doxycycline hyclate 100 mg capsule 100 mg PO BID #20 caps 05/16/22 Rx Allergies Allergy/AdvReac Type Severity Reaction Status Date / Time acetaminophen [From Tylenol] Allergy Verified 06/24/22 21:55 aspirin Allergy Verified 06/24/22 21:55 Penicillins Allergy Verified 06/24/22 21:55 Review of Systems Review of Systems Narrative: 14 systems reviewed and negative aside from what is noted in HPI Exam Vital Signs (past 8 hours): - 06/25/22 18:18 06/25/22 20:59 06/25/22 21:32 Temperature 98.8 F Pulse Rate 109 H 86 Respiratory Rate 18 17 Blood Pressure 144/69 H 132/72 Pulse Oximetry 98 98 95 Oxygen Delivery Method Room Air Room Air Room Air Oxygen Flow Rate 0 06/25/22 21:21 06/25/22 21:20 Temperature 98.4 F Pulse Rate 89 Respiratory Rate 18 Blood Pressure 138/77 Pulse Oximetry 95 Oxygen Delivery Method Room Air Oxygen Flow Rate 0 Oxygen Delivery Method Room Air Oxygen Flow Rate 0 Narrative Exam Narrative: GEN: in distress from pain and anxious HEENT: moist mucous membranes, PERRL NECK: trachea midline, no JVD PULM: clear bilaterally, no wheezes, rhonchi, rales CV: regular rate and rhythm, no murmurs ABD: soft, nontender, nondistended, no organomegaly EXT: warm and well perfused, left leg with erythema from ankle up to near knee, tender and warm to palpation, left leg significant edema and notable multple ulcers, upper extremities have dried ulcers on bilateral hands with slight erythema surrounding NEURO: awake, alert, oriented, no focal deficits noted Objective Labs Result Diagrams: 06/25/22 20:25 06/25/22 20:25 Labs: Laboratory Results - last 24 hr 06/25/22 06/25/22 06/25/22 19:37 20:25 20:25 WBC 7.6 RBC 3.54 L Hgb 11.5 L Hct 33.0 L MCV 93.3 MCH 32.4 MCHC 34.8 RDW 13.1 Plt Count 369 Neut % (Auto) 65.0 Lymph % (Auto) 22.0 L Jones % (Auto) 10.2 Eos % (Auto) 2.0 Baso % (Auto) 0.8 Neut # (Auto) 4900 Lymph # (Auto) 1700 Jones # (Auto) 800 Eos # (Auto) 200 Baso # (Auto) 100 Sodium 137 Potassium 4.1 Chloride 103 Carbon Dioxide 30 BUN 16 Creatinine 0.65 L Estimated GFR > 60 BUN/Creatinine Ratio 24.6 H Glucose 93 Calcium 8.5 Total Bilirubin 0.3 AST 46 ALT 60 H Alkaline Phosphatase 105 Total Protein 6.7 Albumin 3.4 L Globulin 3.3 Albumin/Globulin Ratio 1.0 SARS-CoV-2 (PCR) Negative Assessment & Plan Assessment & Plan narrative: 1. Cellulitis -patient denies any recent IV drug use over the last 5 months -given previous history plan to cover broadly for infectious cause -start with vancomycin and levaquin -follow up on cultures -wean antibiotics as able -ultrasound for DVT negative for DVt -chest xray noted to have nonspecific opacities but clinically not presenting as a pneumonia so for now continue to monitor respiratory status, xray was reviewed by myself as well 2. Opiate, meth abuse and withdrawal -ordered for pain medications with toradol, and oral and IV opiates -hold off on benzos for now, but if agitation and anxiety not improved with opiates may need some doses 3. Tobacco abuse -ordered for nictoine patch I did discuss the case with the patient's bedside nurse and discussed his care with the ED physician. CODE: Full Proxy: Zoe Foster, sister I have utilized all available resources to reconcile the patient's home medications Time Spent With Patient Critical Care time: I spent a total of [] minutes of critical care time on this patient's care today; this time is exclusive of procedural time. Quality VTE Deep Vein Thrombosis/Pulmonary Embolism Present on Admission: No MIPS - Meds 'Current medications' to include all prescriptions, [id number] products, herbals, cannabis/cannabidiol products, and vitamin/mineral/dietary (nutritional) supplements. I have utilized all available resources to obtain, update, or review the patient?s current medications. [If Yes, STOP here]: Yes
[2022-06-26 01:20] VITALS: BP 124/79; PULSE 85; RESP 18; TEMP 36.4; O2SAT 99
[2022-06-26 01:32] VITALS: O2SAT 96
[2022-06-26] MEDS: OXYCODONE IR 5 MG TABLET PO ×3 (03:12→12:44)
[2022-06-26] MEDS: KETOROLAC 30 MG/ML VIAL IV ×2 (03:13→11:00)
[2022-06-26 05:00] VITALS: O2SAT 95
[2022-06-26 05:50] VITALS: BP 131/78; PULSE 80; RESP 23; TEMP 36.5; O2SAT 96
[2022-06-26 06:26] LABS: Add Manual Diff / Slide Review NO; Basophils Absolute Auto 100 /uL (0-100); Basophils Percent Auto 0.7 % (0-2); Eosinophils Absolute Auto 200 /uL (0-450); Eosinophils Percent Auto 2.4 % (2-4); Hematocrit 35.9 % (41-53); Hemoglobin 12.3 g/dL (13.5-17.5); Lymphocytes Absolute Auto 1800 /uL (1100-4500); Lymphocytes Percent Auto 22.3 % (25-40); Mean Corpuscular HGB Conc 34.2 % (30-36); Mean Corpuscular Hemoglobin 32.1 PG (26-34); Mean Corpuscular Volume 93.9 fL (80-100); Monocytes Absolute Auto 900 /uL (0-900); Monocytes Percent Auto 10.8 % (3-14); Neutrophils Absolute Auto 5200 /uL (1500-7000); Neutrophils Percent Auto 63.8 % (50-75); Platelet Count 379 X10^3/uL (150-400); Red Blood Cell Count 3.82 X10^6/uL (4.5-5.9); Red Cell Distribution Width 12.9 % (11.6-14.8); White Blood Cell Count 8.2 X10^3/uL (4.5-11.0)
--- NOTE | 2022-06-26 06:26 | PC.NURSE ---
Pt is AxOx4, stand pivot himself. VSS, pt c/o pain on LLE and recieved PO Oxy 5mg x2 as well as his scheduled Toradol. Pt slept well and eating well. Pt likes to elevate his LLE. No other changes.
[2022-06-26 06:47] LABS: BUN Creatinine Ratio 28.1 (6-22); Blood Urea Nitrogen 16 mg/dL (9-20); Calcium 8.5 mg/dL (8.4-10.2); Carbon Dioxide 27 mmol/L (22-32); Chloride 102 mmol/L (98-107); Estimated Glomerular Filt Rate > 60 mL/min (>60); Glucose 90 mg/dL (70-100); HEMOLYSIS < 15 (0-50); Potassium 4.1 mmol/L (3.4-5.1); Sodium 136 mmol/L (137-145)
[2022-06-26] MEDS: NICOTINE 21 MG PATCH TOP (08:26)
[2022-06-26] MEDS: ENOXAPARIN 40 MG/0.4 ML SYRINGE SUBCUT (08:26)
[2022-06-26 09:00] VITALS: O2SAT 100
[2022-06-26] MEDS: VANCOMYCIN 1,500 MG/300 ML PIGGYBACK 200 MG IV (11:00)
[2022-06-26] MEDS: HYDROMORPHONE 0.5 MG INJ 1 MG IV (11:12)
[2022-06-26 11:22] VITALS: BP 130/75; PULSE 51; RESP 16; TEMP 36.6; O2SAT 100
--- NOTE | 2022-06-26 13:02 | CM.DANOTE ---
DCP: Assessment: Patient is a 52 yo male who was admitted with c/o lle paing and swelling, diagnosed to have Cellulitis to [facility]. Pt has hx of Opiate, meth abuse oand withdrawal. This CM met with pt in his room and explained role. Pt states that he drives at baseline. Pt explained history of addiction of 40 years to include Fentanyl, Heroin, and cigarette use. Pt states that he lives alone in [place] and that his sister lives next door. He states that he does not have a physician because he does not like hospitals or doctors. Pt states that if he has to have ongoing antibiotics that he would like to have outpatient antibiotic therapy at out patient. He states I can drive over and I will complete the treatment. He reports I have puppies at home that I care, they are like my kids and I want to get home to them. This CM explained to pt that he will be discharged once medically stable. P: Discharge home once medically stable. Tina Verde RN Case Manager Discharge Planning/Care Management CM Discharge Assessment Start: 06/26/22 12:53 Freq: Status: Active Protocol: Document 06/26/22 12:53 ROSA (Rec: 06/26/22 13:02 ROSA [id number]) Discharge Planning Assessment Assigned Tester Equipment Tina Verde RN Case Manager Advance Directives? No History Provided By Patient Has Patient been admitted in last 30 Yes days? Comment ED 2 days ago Prior Living Arrangements House Household Members none Comment Sister lives next door Type of transporation used prior to Drives own vehicle admit Independent with ADL's Yes Is patient alert and oriented? Yes Caregiver for Another No DME Already Rented / Owned Cane Comment Pt is requesting to have outpatient antibiotic therapy if he has to remain on antibiotics for any length of time. He states that he is willing to drive to [place] and that he will be compliant with treatment. Barriers to Discharge No Discharge Plan Home Referrals Initiated None needed Whiteboard Updated in Patient Room with Yes name and ext. # of Tester Equipment Review Status In Process Next Review Type Continued Stay Review
--- NOTE | 2022-06-26 14:19 | P.DS_ITS ---
History of Present Illness History of Present Illness Chief complaint: Says septic, fever, L leg pain/swollen Narrative: Mr. Hickman is a 52M with [facility] opiate, meth abuse, cigarette smoker who presents to the hospital with left leg pain and swelling for the last 8 days. He noted that over a week ago he bumped his leg into an object which cause an injury to his leg, a few days later the same thing reoccurred with a new bump to the same leg. He then developed subjective fevers, pain, swelling, erythema over the last few days. The swelling has spread throughout the entire lower left leg. He was hesitant to come to the hospital because he states he dislikes doctors and hospitals. He initially presented to the ED yesterday and was recommended admission for cellulitis but left AMA and was given a script for doxycycline. He states he needed to take care of his dogs before being admitted. He returns now feeling no better. He notes a long history of opiate abuse starting as a child in his early teens and he has been on methadone and multiple rehabs previously. He currently self medicates with fentanyl/perc 30s at 10-15 pills daily, which he states allow him to be functioning and continue to work. He smokes a pack of cigarettes a day, and he occasionally uses marijuana and meth. He last smoked fentanyl a few hours ago, and currently he feels he is withdrawing with anxiety, jitters, and he notes poor pain control in his lower extremity. In the ED workup was done, temp noted to be 100.1, heart rate 110s-120s, blood pressure systolic in the 130s. Labs notable for WBC 7.6, hgb 11.5, plts 369. Creatinine 0.69. Gram culture from wound and blood cultures pending. Ultrasound of left leg negative for DVT. He was ordere for antibiotics and he was admitted for further treatment. Social history: uses fentanyl ie perc 30s 10-15 daily, active cigarette use, marijuana use, meth use Family history: mother from cardiac disease Discharge Providers Provider Date of admission: 06/25/22 20:20 Discharge Date: 06/26/22 Discharge provider: Aj Boo MD Summary Hospital Course Discharge Diagnosis: 1. Cellulitis 2. Opiate, meth abuse and withdrawal 3. Tobacco abuse Hospital Course: Mr. Hickman represented to the hospital after leaving the ED AMA the day prior for a cellulitis. He was treated with broad spectrum antibiotics. The day after admission his wound was growing staph, gram negative, and strep species. He did go through withdrawal from opiates and meth, he was ordered for increasing doses of IV dilaudid, oral oxycodone, and ativan. However he ultimately decided to leave against medical advice. He was advised he could have worsening infection that could lead to sepsis, limb loss or even . He expressed understanding. He was given prescriptions for bactrim and levaquin for one week and encouraged to follow up with an outpatient physician. He was encouraged to return to the hospital at any point for continued care. Exam Vital Signs (past 8 hours): - 06/26/22 11:22 06/26/22 09:00 06/26/22 08:15 Temperature 97.9 F Pulse Rate 51 L Respiratory Rate 16 Blood Pressure 130/75 Pulse Oximetry 100 100 Oxygen Delivery Method Room Air Room Air Oxygen Delivery Method Room Air Oxygen Flow Rate 0 Narrative Exam Narrative: GEN: irritable but redirectable EXT: left leg swollen and erythematous with slight improvement from yesterday Objective Labs Result Diagrams: 06/26/22 05:55 06/26/22 05:55 Labs: Laboratory Results - last 24 hr 06/25/22 06/25/22 06/25/22 19:37 20:25 20:25 WBC 7.6 RBC 3.54 L Hgb 11.5 L Hct 33.0 L MCV 93.3 MCH 32.4 MCHC 34.8 RDW 13.1 Plt Count 369 Neut % (Auto) 65.0 Lymph % (Auto) 22.0 L [place] % (Auto) 10.2 Eos % (Auto) 2.0 Baso % (Auto) 0.8 Neut # (Auto) 4900 Lymph # (Auto) 1700 [place] # (Auto) 800 Eos # (Auto) 200 Baso # (Auto) 100 Sodium 137 Potassium 4.1 Chloride 103 Carbon Dioxide 30 BUN 16 Creatinine 0.65 L Estimated GFR > 60 BUN/Creatinine Ratio 24.6 H Glucose 93 Calcium 8.5 Total Bilirubin 0.3 AST 46 ALT 60 H Alkaline Phosphatase 105 Total Protein 6.7 Albumin 3.4 L Globulin 3.3 Albumin/Globulin Ratio 1.0 Nasal Screen MRSA (PCR) SARS-CoV-2 (PCR) Negative 06/25/22 06/26/2223 21:40 05:55 05:55 WBC 8.2 RBC 3.82 L Hgb 12.3 L Hct 35.9 L MCV 93.9 MCH 32.1 MCHC 34.2 RDW 12.9 Plt Count 379 Neut % (Auto) 63.8 Lymph % (Auto) 22.3 L [place] % (Auto) 10.8 Eos % (Auto) 2.4 Baso % (Auto) 0.7 Neut # (Auto) 5200 Lymph # (Auto) 1800 [place] # (Auto) 900 Eos # (Auto) 200 Baso # (Auto) 100 Sodium 136 L Potassium 4.1 Chloride 102 Carbon Dioxide 27 BUN 16 Creatinine 0.57 L Estimated GFR > 60 BUN/Creatinine Ratio 28.1 H Glucose 90 Calcium 8.5 Total Bilirubin AST ALT Alkaline Phosphatase Total Protein Albumin Globulin Albumin/Globulin Ratio Nasal Screen MRSA (PCR) Negative for mrsa SARS-CoV-2 (PCR) [facility] [place] Social History household members: none Smoking Status: Current every day smoker alcohol intake: former Discharge Plan Discharge Plan Patient Disposition: Left Against Medical Advice Provider Discharge Comment: Mr. Hickman came in to the hospital with a skin infection (cellulitis). He was receiving IV antibiotics and then left against medical advice. He was advised about possible worsening infection, losing his limb, sepsis, and . He expressed understanding. He was given two antibiotics for his infection and encouraged to follow up with a physician as an outpatient. Discharge orders & Medications Discharge Orders: Discharge (Order); Ordered 06/26/22 Ordered By: Aj Boo Prescriptions: New sulfamethoxazole-trimethoprim [Bactrim DS] 800-160 mg tablet 1 tab PO BID Qty: 14 0RF levofloxacin 750 mg tablet 750 mg PO DAILY Qty: 7 0RF Discontinued doxycycline hyclate 100 mg capsule 100 mg PO BID Qty: 20 0RF Diet/Activity/Treatments Diet: Regular Visit Report/Discharge Packet Stand Alone Forms: Patient Portal/API, Stroke Signs & Symptoms Discharge Data Attending Provider: Aj Boo Quality VTE Deep Vein Thrombosis/Pulmonary Embolism Present on Admission: No
--- NOTE | 2022-06-26 15:22 | PC.NURSE ---
Pt actively withdrawing today from multiple medications taken at home. Pt found diaphoretic, restless, irritable and anxious, VSS. informed and spoke with patient. PRN medication changes made. New meds offered to pt but he declined and insisted on leaving the hospital instead. IV removed before discharge. Pt left the hospital with all belongings.
== END 2022-06-26 15:28 | disposition left against medical advice (07) ==
LOC: ED 19:45 → AC 20:22
PROVIDERS: Admitting Provider Internal Medicine; Emergency Provider Emergency Medicine; Referring Provider Emergency Medicine; Visit Provider Internal Medicine
DX: L03.116 Cellulitis of left lower limb (principal); F19.139 Other psychoactive substance abuse with withdrawal, unspecified; F17.210 Nicotine dependence, cigarettes, uncomplicated; Z20.822 Contact with and (suspected) exposure to COVID-19; Z53.29 Procedure and treatment not carried out because of patient's decision for other reasons
CPT/HCPCS: 36415; 80048; 80053; 85025; 87635; 87797; 93971; 96365; 96366; 96367; 96372; 96376; 99283; 99284; C9803; G0378; J1170; J1650; J1885; J1956

== ENCOUNTER 2022-09-04 09:06 | Inpatient (IN) | payer OTHER, MEDICAID, SELFPAY ==
[2022-09-04] VITALS (16 sets, daily range): BP systolic 104–155; BP diastolic 54–87; PULSE 93–128; RESP 16–22; TEMP 36.6–37.4; O2SAT 93–100; BMI 23.0
--- NOTE | 2022-09-04 11:00 | DI.US.S_ITS ---
PROCEDURE: US SCROTUM INDICATIONS: SWELLING BILATERAL SCROTUM TECHNIQUE: Real-time scanning was performed of the scrotum and testicles, with image documentation. Color and pulse Doppler interrogation was performed of both testicles. COMPARISON: None. FINDINGS: Right: Testicle is normal in size at 3.8 x 2.1 x 3.1 cm, and homogenous in echotexture. Epididymis is normal in overall size and morphology. No hydrocele or varicoceles. Overlying scrotal skin is normal in thickness. Left: Testicle is normal in size at 4.1 x 2.0 x 2.7 cm, and homogeneous in echotexture. Epididymis is normal in overall size and morphology. No hydrocele or varicoceles. Overlying scrotal skin is normal in thickness. Doppler: Color and pulse Doppler demonstrate normal and symmetric arterial flow in both testicles. Other findings: There is a small fluid collection noted within the left inguinal canal, superior to the left testicle with possible herniation of bowel. IMPRESSION: 1. Normal sonographic evaluation of the bilateral testicles. No evidence for torsion or suspicious mass lesion. 2. Suspected bowel and fat containing left inguinal hernia with small amount of fluid within the hernia sac. Dictated by: Silverio Villa M.D. on 09/04/2022 at 12:39 Approved by: Silverio Villa M.D. on 09/04/2022 at 12:41
--- NOTE | 2022-09-04 11:00 | PC.NURSE ---
pt is being rude and yelling at staff to bring him a urinal, leave him alone, does not want to stand to use restroom but ambulated to bed, pt refuses repeat vitals. instructed pt not to drink beverage but pt continues to drink beverage
[2022-09-04 11:33] LABS: Add Manual Diff / Slide Review NO; Basophils Absolute Auto 100 /uL (0-100); Basophils Percent Auto 0.5 % (0-2); Eosinophils Absolute Auto 0 /uL (0-450); Eosinophils Percent Auto 0.2 % (2-4); Hematocrit 36.1 % (41-53); Hemoglobin 12.7 g/dL (13.5-17.5); Lymphocytes Absolute Auto 1900 /uL (1100-4500); Lymphocytes Percent Auto 12.2 % (25-40); Mean Corpuscular HGB Conc 35.1 % (30-36); Mean Corpuscular Hemoglobin 31.6 PG (26-34); Mean Corpuscular Volume 90.1 fL (80-100); Monocytes Absolute Auto 2500 /uL (0-900); Monocytes Percent Auto 16.4 % (3-14); Neutrophils Absolute Auto 10800 /uL (1500-7000); Neutrophils Percent Auto 70.7 % (50-75); Platelet Count 410 X10^3/uL (150-400); Red Blood Cell Count 4.01 X10^6/uL (4.5-5.9); Red Cell Distribution Width 12.7 % (11.6-14.8); White Blood Cell Count 15.3 X10^3/uL (4.5-11.0)
[2022-09-04 11:43] LABS: Alanine Aminotransferase 41 IU/L (<50); Albumin 3.6 g/dL (3.5-5.0); Albumin Globulin Ratio 0.9 (1.0-2.8); Alkaline Phosphatase 90 U/L (38-126); Aspartate Aminotransferase 31 IU/L (17-59); BUN Creatinine Ratio 19.3 (6-22); Bilirubin Total 0.8 mg/dL (0.2-1.3); Blood Urea Nitrogen 17 mg/dL (9-20); Calcium 8.9 mg/dL (8.4-10.2); Carbon Dioxide 30 mmol/L (22-32); Chloride 97 mmol/L (98-107); Estimated Glomerular Filt Rate > 60 mL/min (>60); Globulin 4.2 g/dL (1.7-4.1); Glucose 128 mg/dL (70-100); HEMOLYSIS < 15 (0-50); Potassium 4.1 mmol/L (3.4-5.1); Sodium 134 mmol/L (137-145); Total Protein 7.8 g/dL (6.3-8.2)
--- NOTE | 2022-09-04 11:53 | DI.CT.S_ITS ---
PROCEDURE: CT ABDOMEN PELVIS W CON INDICATIONS: eval hernia/abscess, scrotal swelling TECHNIQUE: After the administration of IV contrast, axial sections were acquired from the lung bases to the pubic symphysis. Coronal and sagittal reformats were performed. For radiation dose reduction, the following was used: automated exposure control, adjustment of mA and/or kV according to patient size. COMPARISON: Located Within [facility], , US SCROTUM, 09/04/2022, 11:40. Located Within [facility], , US PERIPH VENOUS LOW EXTREM LT, 06/25/2022, 20:04. FINDINGS: Image quality: Excellent. Lung bases: Unremarkable. Small hiatal hernia. Concentric thickening at the gastroesophageal junction. Heart: No significant findings. ABDOMEN: Liver: Unremarkable. Gallbladder: Unremarkable. Biliary ducts: Unremarkable. Pancreas: Unremarkable. Spleen: Unremarkable. Adrenal Glands: Unremarkable. Kidneys and Ureters: Unremarkable. Stomach and Bowel: Stomach, small bowel loops, and colon are unremarkable. Peritoneum: No abnormal intraperitoneal fluid. No free air. Ventral Wall: No hernia. Abdominal Nodes: No retroperitoneal or mesenteric adenopathy by size criteria. Vessels: Aorta and inferior vena cava are normal in size. PELVIS: Pelvic Organs: Unremarkable. Bladder: Unremarkable. Pelvic Nodes: No enlarged lymph nodes. Miscellaneous: There is a large left inguinal hernia containing omental fat and vessels. No bowel loops within the hernia sac. There is fluid in the left scrotum consistent with hydrocele. . Bones: Small indeterminate lucencies are present in iliac bones bilaterally. Small sclerotic foci in the humeral head bilaterally are probably bone islands. Moderate spondylitis IMPRESSION: 1. Large left inguinal hernia containing omental fat and vessels. No bowel loops within the hernia sac. 2. Moderate to large hydrocele in the left scrotum. 3. Small hiatal hernia. There is mild concentric thickening at the gastroesophageal junction. Consider esophagram or EGD for follow-up. 3. Several small indeterminate lucencies in iliac bones bilaterally. Differential diagnoses include multiple myelomas, metastasis and benign process such as bone cysts. Recommend clinical correlation. Dictated by: Go Silva M.D. on 09/04/2022 at 13:49 Approved by: Go Silva M.D. on 09/04/2022 at 14:11
--- NOTE | 2022-09-04 13:02 | PC.NURSE ---
went into room to obtain iv access. pt states the lab lady told me what vein you need to stick, its a pipe. rn felt vein and felt lots of scar tissue. rn attempted iv and got flash but could not advance catheter due to scar tissue. looking for other access pt states florencio shot dope for years i have scar tissue everywhere and that lady said to stick right here. explained again that i need an iv not just labs and that means i must advance the iv catheter in the vein so he can get iv contrast for his ct. pt states well the ortho doc stuck it in my neck. pt then rips mask off and throws it across room and yells out to housekeeping and aide for help. queried pt what he needed and he states i want someone to come supervise you. pt has been belligerent for entiretly of attempting iv placement. pt only stuck x 1 unable to obtain iv at that time. this rn leaves room and asks someone else to take over.
[2022-09-04 13:39] LABS: Bacteria Urine Many (>30); RBC Urine 5-10/HPF (0-5/HPF); Squamous Epithelial Cell Urine 1-5 /HPF (0-5/HPF); WBC Urine >100/HPF (0-5/HPF)
--- NOTE | 2022-09-04 15:01 | ED_ITS ---
HPI - Skin/Abscess/Foreign Bdy General Chief complaint: Skin/Abscess/Foreign Body Stated complaint: skin peeling off from knees to ankels Time Seen by Provider: 09/04/22 10:50 Source: patient Mode of arrival: Wheelchair History of Present Illness HPI narrative: Precordial male presenting with bilateral lower extremity pain right greater t kraus left in the setting multiple prior episodes cellulitis. Patient reports polysubstance abuse that is active, cassettes cellulitis requiring hospitalization. No measured fevers recently. Patient reports worsening pain localized in the right lower extremity and left lower extremity, most recent antibiotics were month prior presentation. Patient reports interest in quitting his polysubstance use habit. Related Data Home Medications Medication Instructions Recorded Confirmed No Known Home Medications 09/04/22 09/04/22 Allergies Allergy/AdvReac Type Severity Reaction Status Date / Time acetaminophen [From Tylenol] Allergy Verified 09/04/22 09:13 aspirin Allergy Verified 09/04/22 09:13 Penicillins Allergy Verified 09/04/22 09:13 Patient History Social History household members: none Smoking Status: Current every day smoker alcohol intake: current Smoking Status: Current every day smoker alcohol intake frequency: holidays/special occasions only Substance Use Type: marijuana, heroin, opiates, IV drugs, methamphetamine and other Exam Narrative Exam Narrative: Vitals reviewed. Nursing note reviewed Constitutional: interactive HENT: Moist mucous membranes EYES: No scleral icterus NECK: no masses CV: Well perfused peripherally, no cyanosis present PULM: Unlabored respirations, symmetric chest rise ABD: Non-distended MS: No gross deformities, no asymmetric edema noted SKIN: Warm and dry, right lower extremity is erythematous and scaling with induration, warm to touch, left lower extremity with scaling, somewhat were mild erythema and induration, minimal tenderness with palpation PSYCH: Appropriate affect NEURO: Follows simple commands, moves extremities, interactive with exam Initial Vital Signs Initial Vital Signs: Vital Signs Temperature 99.2 F 09/04/22 09:13 Pulse Rate 128 H 09/04/22 09:13 Respiratory Rate 16 09/04/22 09:13 Blood Pressure 155/87 H 09/04/22 09:13 Pulse Oximetry 98 09/04/22 09:13 Oxygen Delivery Method Room Air 09/04/22 09:13 Course Orders Ordered: ED Orders 09/04/22 13:00 Urine Culture Stat Urine Microscopic Stat 09/04/22 15:50 Blood Culture Stat ETOH [Ethanol (ETOH)] Stat Lactate (Lactic Acid) Stat 09/04/22 17:01 Education, smoking cessation ONGOING 09/04/22 18:33 MRSA (Nasal) PCR Stat 09/05/22 05:00 BMP [Basic Metabolic Panel] DAILY CBC Auto Diff [Complete Blood Count AUTO DIFF] DAILY 09/06/22 05:00 BMP [Basic Metabolic Panel] DAILY CBC Auto Diff [Complete Blood Count AUTO DIFF] DAILY 09/07/22 05:00 BMP [Basic Metabolic Panel] DAILY CBC Auto Diff [Complete Blood Count AUTO DIFF] DAILY Enoxaparin Sodium (Enoxaparin 40 Mg/0.4 Ml Syringe) 40 mg SUBCUT DAILY [facility] Ceftriaxone Sodium 1,000 mg/ (Sodium Chloride) 100 mls @ 200 mls/hr IV Q24H [facility] Stop: 09/11/22 16:59 Last Admin: 09/04/22 18:31 Dose: Not Given Documented By: TRUE Vancomycin HCl (Vancomycin) 1,000 mg in 200 mls @ 200 mls/hr IV Q8H [facility] Last Admin: 09/04/22 18:43 Dose: 200 mls/hr Documented By: AA Melatonin (Melatonin 3 Mg Tablet) 6 mg PO BEDTIME PRN PRN Reason: Insomnia Methadone HCl (Methadone 10 Mg Tablet) 10 mg PO TID [facility] Last Admin: 09/04/22 20:52 Dose: 10 mg Documented By: Admin: 09/04/22 18:43 Dose: 10 mg Documented By: AA Naloxone HCl (Naloxone 0.4 Mg/Ml Vial) 0.2 mg IV Q2MIN PRN PRN Reason: Opiate Reversal Oxycodone HCl (Oxycodone Ir 5 Mg Tablet) 10 mg PO Q4HR PRN PRN Reason: Pain, Moderate (4-6) Polyethylene Glycol (Polyethylene Glycol 3350 17 Gm Powd.Pack) 17 gm PO DAILY PRN PRN Reason: Constipation Sennosides (Sennosides 8.6 Mg Tablet) 8.6 mg PO BID PRN PRN Reason: Constipation Silver Sulfadiazine (Silver Sulfadiazine 1% Cream 50 Gm) 1 applic TOP DAILY [facility] Sodium Chloride (Sodium Chloride 0.9% Flush) 10 ml IV BID [facility] Last Admin: 09/04/22 20:52 Dose: 10 ml Documented By: MM Vancomycin HCl (Vancomycin Trough) 1 request [facility] 1700 ONE Stop: 09/05/22 17:01 Discontinued Medications Trimethoprim/Sulfamethoxazole (160 mg/ Dextrose) 260 mls @ 173.333 mls/hr IV Q6H [facility] Last Admin: 09/04/22 16:06 Dose: Not Given Documented By: RB Sodium Chloride (Normal Saline 0.9%) 500 mls @ 1,000 mls/hr IV BOLUS ONE Stop: 09/04/22 15:39 Last Infusion: 09/04/22 16:35 Dose: 0 mls/hr Documented By: Admin: 09/04/22 15:36 Dose: 1,000 mls/hr Documented By: RB Cefazolin Sodium/Dextrose (Ancef) 100 mls @ 200 mls/hr IV NOW ONE Stop: 09/04/22 15:45 Last Infusion: 09/04/22 16:35 Dose: 0 mls/hr Documented By: Admin: 09/04/22 16:01 Dose: 200 mls/hr Documented By: RB Nicotine (Nicotine 21 Mg Patch) 21 mg TOP NOW ONE Stop: 09/04/22 16:48 Last Admin: 09/04/22 16:51 Dose: 21 mg Documented By: RB Oxycodone HCl (Oxycodone Ir 5 Mg Tablet) 5 mg PO Q4HR PRN PRN Reason: Pain, Moderate (4-6) Trimethoprim/Sulfamethoxazole (Trimeth/Sulfa 160/800 (Ds) Tablet) 1 tab PO BID [facility] Last Admin: 09/04/22 16:28 Dose: 1 tab Documented By: RB Vancomycin HCl (Vancomycin Per Pharmacy) 1 request [facility] NOW ONE Stop: 09/04/22 17:00 Last Admin: 09/04/22 17:48 Dose: Not Given Documented By: RB Vital Signs Vital signs: Vital Signs - 8 hr 09/04/22 14:39 09/04/22 14:40 09/04/22 14:40 Pulse Rate 101 H 102 H Blood Pressure 116/65 Pulse Oximetry 97 97 09/04/22 15:00 09/04/22 15:00 09/04/22 15:30 Pulse Rate 96 H Blood Pressure 127/75 116/59 L Pulse Oximetry 98 09/04/22 15:30 09/04/22 16:00 09/04/22 16:05 Pulse Rate 98 H 94 H 99 H Blood Pressure Pulse Oximetry 97 100 09/04/22 16:05 09/04/22 16:30 09/04/22 16:30 Pulse Rate Blood Pressure 107/54 L 112/68 Pulse Oximetry 97 09/04/22 17:00 09/04/22 17:00 Pulse Rate 93 H Blood Pressure 120/71 Pulse Oximetry 96 MDM - Skin/Abscess/Foreign Bdy Lab Data 09/04/22 11:25 09/04/22 11:25 Labs: Lab Results 09/04/22 09/04/22 09/04/22 Range/Units 10:00 11:25 11:25 WBC 15.3 H (4.5-11.0) X10^3/uL RBC 4.01 L (4.5-5.9) X10^6/uL Hgb 12.7 L (13.5-17.5) g/dL Hct 36.1 L (41-53) % MCV 90.1 (80-100) fL MCH 31.6 (26-34) PG MCHC 35.1 (30-36) % RDW 12.7 (11.6-14.8) % Plt Count 410 H (150-400) X10^3/uL Neut % (Auto) 70.7 (50-75) % Lymph % (Auto) 12.2 L (25-40) % [place] % (Auto) 16.4 H (3-14) % Eos % (Auto) 0.2 L (2-4) % Baso % (Auto) 0.5 (0-2) % Neut # (Auto) 13653 H (9013-9910) /uL Lymph # (Auto) 1900 (9936-7638) /uL [place] # (Auto) 2500 H (0-900) /uL Eos # (Auto) 0 (0-450) /uL Baso # (Auto) 100 (0-100) /uL Sodium 134 L (137-145) mmol/L Potassium 4.1 (3.4-5.1) mmol/L Chloride 97 L (98-107) mmol/L Carbon Dioxide 30 (22-32) mmol/L BUN 17 (9-20) mg/dL Creatinine 0.88 (0.66-1.25) mg/dL Estimated GFR > 60 (>60) mL/min BUN/Creatinine Ratio 19.3 (6-22) Glucose 128 H (70-100) mg/dL Hemoglobin A1c (4.0-6.0) % Lactate (0.7-2.1) mmol/L Calcium 8.9 (8.4-10.2) mg/dL Magnesium (1.6-2.3) mg/dL Total Bilirubin 0.8 (0.2-1.3) mg/dL AST 31 (17-59) IU/L ALT 41 (<50) IU/L Alkaline Phosphatase 90 (38-126) U/L Total Protein 7.8 (6.3-8.2) g/dL Albumin 3.6 (3.5-5.0) g/dL Globulin 4.2 H (1.7-4.1) g/dL Albumin/Globulin Ratio 0.9 L (1.0-2.8) Procalcitonin (<0.5) ng/mL Urine RBC (0-5/HPF) Urine WBC (0-5/HPF) Ur Squamous Epith Cells (0-5/HPF) Urine Bacteria (None) U Opiates 300ng/mL cut Positive H (Negative) Ur Oxycodone Screen Negative (Negative) Urine Methadone Screen Negative (Negative) Ur Barbiturates Screen Negative (Negative) U Tricyclic Antidepress Negative (Negative) Ur Phencyclidine Scrn Negative (Negative) Ur Amphetamines Screen Positive H (Negative) U Methamphetamines Scrn Positive H (Negative) Ur MDMA Scrn (Ecstasy) Negative (Negative) U Benzodiazepines Scrn Negative (Negative) Urine Cocaine Screen Negative (Negative) U Marijuana (THC) Screen Negative (Negative) Ethyl Alcohol ( - 10) mg/dL 09/04/22 09/04/22 09/04/22 Range/Units 11:25 11:25 11:25 WBC (4.5-11.0) X10^3/uL RBC (4.5-5.9) X10^6/uL Hgb (13.5-17.5) g/dL Hct (41-53) % MCV (80-100) fL MCH (26-34) PG MCHC (30-36) % RDW (11.6-14.8) % Plt Count (150-400) X10^3/uL Neut % (Auto) (50-75) % Lymph % (Auto) (25-40) % [place] % (Auto) (3-14) % Eos % (Auto) (2-4) % Baso % (Auto) (0-2) % Neut # (Auto) (2444-6889) /uL Lymph # (Auto) (7459-6508) /uL [place] # (Auto) (0-900) /uL Eos # (Auto) (0-450) /uL Baso # (Auto) (0-100) /uL Sodium (137-145) mmol/L Potassium (3.4-5.1) mmol/L Chloride (98-107) mmol/L Carbon Dioxide (22-32) mmol/L BUN (9-20) mg/dL Creatinine (0.66-1.25) mg/dL Estimated GFR (>60) mL/min BUN/Creatinine Ratio (6-22) Glucose (70-100) mg/dL Hemoglobin A1c 5.2 (4.0-6.0) % Lactate (0.7-2.1) mmol/L Calcium (8.4-10.2) mg/dL Magnesium 2.3 (1.6-2.3) mg/dL Total Bilirubin (0.2-1.3) mg/dL AST (17-59) IU/L ALT (<50) IU/L Alkaline Phosphatase (38-126) U/L Total Protein (6.3-8.2) g/dL Albumin (3.5-5.0) g/dL Globulin (1.7-4.1) g/dL Albumin/Globulin Ratio (1.0-2.8) Procalcitonin 0.49 (<0.5) ng/mL Urine RBC (0-5/HPF) Urine WBC (0-5/HPF) Ur Squamous Epith Cells (0-5/HPF) Urine Bacteria (None) U Opiates 300ng/mL cut (Negative) Ur Oxycodone Screen (Negative) Urine Methadone Screen (Negative) Ur Barbiturates Screen (Negative) U Tricyclic Antidepress (Negative) Ur Phencyclidine Scrn (Negative) Ur Amphetamines Screen (Negative) U Methamphetamines Scrn (Negative) Ur MDMA Scrn (Ecstasy) (Negative) U Benzodiazepines Scrn (Negative) Urine Cocaine Screen (Negative) U Marijuana (THC) Screen (Negative) Ethyl Alcohol ( - 10) mg/dL 09/04/22 09/04/22 09/04/22 Range/Units 13:00 15:50 15:50 WBC (4.5-11.0) X10^3/uL RBC (4.5-5.9) X10^6/uL Hgb (13.5-17.5) g/dL Hct (41-53) % MCV (80-100) fL MCH (26-34) PG MCHC (30-36) % RDW (11.6-14.8) % Plt Count (150-400) X10^3/uL Neut % (Auto) (50-75) % Lymph % (Auto) (25-40) % [place] % (Auto) (3-14) % Eos % (Auto) (2-4) % Baso % (Auto) (0-2) % Neut # (Auto) (2096-6717) /uL Lymph # (Auto) (9053-9974) /uL [place] # (Auto) (0-900) /uL Eos # (Auto) (0-450) /uL Baso # (Auto) (0-100) /uL Sodium (137-145) mmol/L Potassium (3.4-5.1) mmol/L Chloride (98-107) mmol/L Carbon Dioxide (22-32) mmol/L BUN (9-20) mg/dL Creatinine (0.66-1.25) mg/dL Estimated GFR (>60) mL/min BUN/Creatinine Ratio (6-22) Glucose (70-100) mg/dL Hemoglobin A1c (4.0-6.0) % Lactate 1.4 (0.7-2.1) mmol/L Calcium (8.4-10.2) mg/dL Magnesium (1.6-2.3) mg/dL Total Bilirubin (0.2-1.3) mg/dL AST (17-59) IU/L ALT (<50) IU/L Alkaline Phosphatase (38-126) U/L Total Protein (6.3-8.2) g/dL Albumin (3.5-5.0) g/dL Globulin (1.7-4.1) g/dL Albumin/Globulin Ratio (1.0-2.8) Procalcitonin (<0.5) ng/mL Urine RBC 5-10/hpf H (0-5/HPF) Urine WBC >100/hpf H (0-5/HPF) Ur Squamous Epith Cells 1-5 /hpf (0-5/HPF) Urine Bacteria Many (>30) H (None) U Opiates 300ng/mL cut (Negative) Ur Oxycodone Screen (Negative) Urine Methadone Screen (Negative) Ur Barbiturates Screen (Negative) U Tricyclic Antidepress (Negative) Ur Phencyclidine Scrn (Negative) Ur Amphetamines Screen (Negative) U Methamphetamines Scrn (Negative) Ur MDMA Scrn (Ecstasy) (Negative) U Benzodiazepines Scrn (Negative) Urine Cocaine Screen (Negative) U Marijuana (THC) Screen (Negative) Ethyl Alcohol < 10 ( - 10) mg/dL Urine Dip Bedside Urine Glucose Negative Bedside Urine Bilirubin - Negative Bedside Urine Ketone - Negative Urine Specific [place] 1.020 Bedside Urine Occult Blood +++ Bedside Urine pH 5.5 Bedside Urine Protein +/- 15 Bedside Urine Urobilinogen 0.2 Bedside Urine Nitrite - Negative Bedside Urine Leukocytes ++ 125 Esterase MDM Narrative Medical decision making narrative: 52-year-old male presenting with bilateral lower extremity pain, erythema, and scaling concerning for recurrent cellulitis. Patient also reports testicular swelling but it has been ongoing. On presentation, vital signs notable for tachycardia. Physical exam notable for alert interactive 52-year-old male with large scrotal mass that is soft and reducible, bilateral lower extremities with scaling, erythema, and concern infection. Initial concern for cellulitis, NSTI, DVT, abscess, hernia, orchitis, epididy mitis, hydrocele, obstruction. Patient underwent imaging to further evaluate his scrotal mass, scrotal ultrasound without clear evidence of testicular pathology, concerning for hernia, follow up CT imaging confirms hernia with fat vascular containing hernia, no bowel contained in the hernia. Given hernia is partially reducible at the bedside, discussed plan for following up in the outpatient setting with General surgery for elective repair. Screening labs ordered and notable for leukocytosis with normal lactate. Patient was administered broad-spectrum antibiotics and IV fluids consistent with sepsis guidelines. Given patient's recurrent cellulitis, discussed plan for admission to facilitate further management. Patient agreeable with this plan and subsequently admitted in stable condition. Discharge Plan Departure Patient Disposition: Admitted As Inpatient Clinical Impression: Cellulitis Admit Date/Time: 09/04/22 17:04 Admit Provider: Devyn Gill
[2022-09-04] MEDS: SODIUM CHLORIDE 0.9% 500 ML 1000 ML IV (15:36)
[2022-09-04] MEDS: CEFAZOLIN 2 GM/100 ML PREMIX 100 ML IV (16:01)
[2022-09-04 16:07] LABS: Lactate (Lactic Acid) 1.4 mmol/L (0.7-2.1)
[2022-09-04] MEDS: TRIMETH/SULFA 160/800 (DS) TABLET 1 TAB PO (16:28)
[2022-09-04] MEDS: NICOTINE 21 MG PATCH TOP (16:51)
[2022-09-04 17:02] LABS: Ethanol (ETOH) < 10 mg/dL
--- NOTE | 2022-09-04 17:23 | CM.IDA ---
Initial DCP Assessment Patient is 52 y/o male who presents to due to concern for cellulitis and swelling. Patient recently left AMA on 06/26/22 for similar concerns. Patient endorses he has not followed up with PCP since hospitalization but he took prescribed antibiotics and medication upon d/c. Patient does not have current PCP, patient has [employer] and Medicaid insurance. Patient has hx of Cellulitis, Fentynal use, Heroin use, Methamphetamine and THC use. Patient endorses he self medicates due to pain after hx of several fractures throughout the years. SUPERVISOR PLASTERING enters room to meet with patient. Patient presents as A/Ox4, patient endorses independence with ADLs and can drive vehicle. Patient endorses he lives in [place] in a shed next to his sister. Patient endorses his dogs are being cared for and that is not current concern for him while he is in the hospital. Patient endorses this was a previous concern when he left AMA. When asked if patient will agree to stay until medical clearance, patient agrees to do so. ED provider reports that patient endorses this to him as well. Patient endorses he has been an active opiate user for 42 years. Patient states he planned to go to [facility] recently for an intake appt at 5:30 on Thursday but he missed the appt, SUPERVISOR PLASTERING encourages patient to go to next available intake on Thursday and patient agrees to do so. Patient endorses he does not like hospitals due to his history with hospitals and hx of fractures. Patient denies DCP needs at this time. Patient has been accepted by hospitalist to treat patient's cellulitis and swelling. Plan: Patient to be admitted to acute care, DCP to f/u with POC, no DCP needs at this time. Patient likely to d/c to home. [facility] [place] Discharge Planning/Care Management CM Discharge Assessment Start: 09/04/22 17:20 Freq: Status: Active Protocol: Document 09/04/22 17:20 LN (Rec: 09/04/22 17:23 LN [id number]) Discharge Planning Assessment Assigned Artist Agent [facility] [place] Advance Directives? No History Provided By Patient,Medical Record Has Patient been admitted in last 30 No days? Comment Patient was admitted 06/26/22 and left AMA on 06/26/22 Prior Living Arrangements Other Comment Patient endorses he lives in a shop next to his sister's house Household Members none Type of transporation used prior to Drives own vehicle admit Independent with ADL's Yes Is patient alert and oriented? Yes Comment Patient endorses plan to seek out outpatient services at [facility] on Thursday at 5:30AM Referrals Initiated None needed Please Provide Date Initial DC 09/04/22 Assessment Was Performed
[2022-09-04 17:25] LABS: UR Morphine/Opiate cutoff 300 Positive (Negative); Ur Creatinine Normal (Normal); Ur Specific Gravity Normal (Normal); Urine Amphetamines Positive (Negative); Urine Barbiturates Negative (Negative); Urine Benzodiazepines Negative (Negative); Urine Cocaine Negative (Negative); Urine MDMA Negative (Negative); Urine Methadone Negative (Negative); Urine Methamphetamines Positive (Negative); Urine Oxycodone Negative (Negative); Urine Phencyclidine Negative (Negative); Urine Tetrahydrocannabinol Negative (Negative); Urine Tricyclic Antidepressant Negative (Negative); Urine pH Normal (Normal)
[2022-09-04 17:26] LABS: Magnesium 2.3 mg/dL (1.6-2.3)
[2022-09-04 17:27] LABS: Hemoglobin A1C% w Est Avg Glu 5.2 % (4.0-6.0)
[2022-09-04 17:44] LABS: Procalcitonin 0.49 ng/mL (<0.5)
--- NOTE | 2022-09-04 17:51 | PM.HP.1 ---
History of Present Illness History of Present Illness Date Patient Seen: 09/04/22 Chief complaint: skin peeling off from knees to ankels Narrative: Rory Hickman is a 52yo male with PMH of polysubstance use of heroin and meth, venous insufficiency, inguinal hernia, and tobacco use who presents with worsening pain, redness and weaping of his RLE. He wrapped his legs in cut up underwear then put jeans over them and left it on for 5 days and when he took it off he noticed his legs were crusted, raw and weeping. His right leg is extremely painful. Patient says it has began to worsen since he stopped using IV heroin and switched to smoking fentanyl. He smokes up to 30 tabs of fentanyl per day. He says he is currently withdrawing and would like to start methadone to stop using drugs and get established at the [facility] methadone clinic. He was previously on methadone 30 years ago, but stopped it and hasn't had a success since then with suboxone. He also notes a inguinal hernia into his scrotum which occasionally causes his scrotum to swell the size of my head. 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 CT pelvis showed possible bowel in hernia but no strangulation. ED doc able to manually reduce the hernia. Patient denies CP, SOB, abd pain or diarrhea. Patient History Family & Social History Social History: household members none Prior Living Arrangements Other Safety & Behavioral: Feels Safe in Current Yes Environment Been Physically Hurt or No Threatened By a Person Tobacco & Substance use: Smoking Status Current every day smoker alcohol intake former alcohol intake frequency holiday/special occasion Substance Use Type marijuana,heroin,opiates,IV drugs, methamphetamine,other Meds Home Medications and Allergies Home Medications Medication Instructions Recorded Confirmed Type levofloxacin 750 mg tablet 750 mg PO DAILY #7 tabs 06/26/22 Rx sulfamethoxazole 800 1 tab PO BID #14 tabs 06/26/22 Rx mg-trimethoprim 160 mg tablet (Bactrim DS) Allergies Allergy/AdvReac Type Severity Reaction Status Date / Time acetaminophen [From Tylenol] Allergy Verified 09/04/22 09:13 aspirin Allergy Verified 09/04/22 09:13 Penicillins Allergy Verified 09/04/22 09:13 Review of Systems Review of Systems Narrative: All other systems reviewed with the patient and are negative unless otherwise stated. Exam Vital Signs (past 8 hours): - 09/04/22 14:39 09/04/22 14:40 09/04/22 14:40 Pulse Rate 101 H 102 H Blood Pressure 116/65 Pulse Oximetry 97 97 09/04/22 15:00 09/04/22 15:00 09/04/22 15:30 Pulse Rate 96 H Blood Pressure 127/75 116/59 L Pulse Oximetry 98 09/04/22 15:30 09/04/22 16:00 09/04/22 16:05 Pulse Rate 98 H 94 H 99 H Blood Pressure Pulse Oximetry 97 100 09/04/22 16:05 09/04/22 16:30 09/04/22 16:30 Pulse Rate Blood Pressure 107/54 L 112/68 Pulse Oximetry 97 Oxygen Delivery Method Room Air Narrative Exam Narrative: GEN: Anxious and jittery male who appears older than stated age HEENT: moist mucous membranes, PERRL NECK: trachea midline, no JVD CV: regular rate and rhythm, no murmurs PULM: clear bilaterally ABD: soft, nontender, nondistended, no organomegaly Genitalia: Scrotum with reducible inguinal hernia on the left side EXT: Bilateral lower extremity venous stasis dermatitis with weeping clear drainage and possible cellulitis of the right leg with erythema, no significant swelling NEURO: awake, alert, oriented, no focal deficits Objective Labs 09/04/22 11:25 09/04/22 11:25 Labs: Laboratory Results - last 24 hr 09/04/22 09/04/22 09/04/22 10:00 11:25 11:25 WBC 15.3 H RBC 4.01 L Hgb 12.7 L Hct 36.1 L MCV 90.1 MCH 31.6 MCHC 35.1 RDW 12.7 Plt Count 410 H Neut % (Auto) 70.7 Lymph % (Auto) 12.2 L [place] % (Auto) 16.4 H Eos % (Auto) 0.2 L Baso % (Auto) 0.5 Neut # (Auto) 41151 H Lymph # (Auto) 1900 [place] # (Auto) 2500 H Eos # (Auto) 0 Baso # (Auto) 100 Sodium 134 L Potassium 4.1 Chloride 97 L Carbon Dioxide 30 BUN 17 Creatinine 0.88 Estimated GFR > 60 BUN/Creatinine Ratio 19.3 Glucose 128 H Hemoglobin A1c Lactate Calcium 8.9 Magnesium Total Bilirubin 0.8 AST 31 ALT 41 Alkaline Phosphatase 90 Total Protein 7.8 Albumin 3.6 Globulin 4.2 H Albumin/Globulin Ratio 0.9 L Procalcitonin Urine RBC Urine WBC Ur Squamous Epith Cells Urine Bacteria U Opiates 300ng/mL cut Positive H Ur Oxycodone Screen Negative Urine Methadone Screen Negative Ur Barbiturates Screen Negative U Tricyclic Antidepress Negative Ur Phencyclidine Scrn Negative Ur Amphetamines Screen Positive H U Methamphetamines Scrn Positive H Ur MDMA Scrn (Ecstasy) Negative U Benzodiazepines Scrn Negative Urine Cocaine Screen Negative U Marijuana (THC) Screen Negative Ethyl Alcohol 09/04/22 09/04/22 09/04/22 11:25 11:25 11:25 WBC RBC Hgb Hct MCV MCH MCHC RDW Plt Count Neut % (Auto) Lymph % (Auto) [place] % (Auto) Eos % (Auto) Baso % (Auto) Neut # (Auto) Lymph # (Auto) [place] # (Auto) Eos # (Auto) Baso # (Auto) Sodium Potassium Chloride Carbon Dioxide BUN Creatinine Estimated GFR BUN/Creatinine Ratio Glucose Hemoglobin A1c 5.2 Lactate Calcium Magnesium 2.3 Total Bilirubin AST ALT Alkaline Phosphatase Total Protein Albumin Globulin Albumin/Globulin Ratio Procalcitonin 0.49 Urine RBC Urine WBC Ur Squamous Epith Cells Urine Bacteria U Opiates 300ng/mL cut Ur Oxycodone Screen Urine Methadone Screen Ur Barbiturates Screen U Tricyclic Antidepress Ur Phencyclidine Scrn Ur Amphetamines Screen U Methamphetamines Scrn Ur MDMA Scrn (Ecstasy) U Benzodiazepines Scrn Urine Cocaine Screen U Marijuana (THC) Screen Ethyl Alcohol 09/04/22 09/04/22 09/04/22 13:00 15:50 15:50 WBC RBC Hgb Hct MCV MCH MCHC RDW Plt Count Neut % (Auto) Lymph % (Auto) [place] % (Auto) Eos % (Auto) Baso % (Auto) Neut # (Auto) Lymph # (Auto) [place] # (Auto) Eos # (Auto) Baso # (Auto) Sodium Potassium Chloride Carbon Dioxide BUN Creatinine Estimated GFR BUN/Creatinine Ratio Glucose Hemoglobin A1c Lactate 1.4 Calcium Magnesium Total Bilirubin AST ALT Alkaline Phosphatase Total Protein Albumin Globulin Albumin/Globulin Ratio Procalcitonin Urine RBC 5-10/hpf H Urine WBC >100/hpf H Ur Squamous Epith Cells 1-5 /hpf Urine Bacteria Many (>30) H U Opiates 300ng/mL cut Ur Oxycodone Screen Urine Methadone Screen Ur Barbiturates Screen U Tricyclic Antidepress Ur Phencyclidine Scrn Ur Amphetamines Screen U Methamphetamines Scrn Ur MDMA Scrn (Ecstasy) U Benzodiazepines Scrn Urine Cocaine Screen U Marijuana (THC) Screen Ethyl Alcohol < 10 Assessment & Plan Assessment & Plan narrative: # RLE cellulitis, bilateral venous stasis dermatitis -WBC 15, procal 0.5 -RLE worse than right with erythema and significant pain to touch -start rocephin and vanc, previous wound cultures grew MRSA -f/u blood cultures -daily wound care with vigorous cleaning of legs, silvadene ointment and kerlix wraps # possible UTI -UA with significant pyuria, repeat UA as may not be accurate -abx as above -f/u urine culture # polysubstance abuve with acute fentanyl withdrawals -patient admits to smoking fentanyl, marijuana and using meth -UDS positive for meth, opiates. Check urine fentanyl. -patient interested in starting methadone to get off opiates -start methadone 10mg TID, oxy for breakthrough pain -CAN SLIDER consult Code status is full code. COVID negative. DVT prophylaxis with Lovenox. Proxy is sister Zoe Foster. I have reviewed home meds and used all available resources to reconcile the home meds. This patient will be admitted as inpatient and will require greater than 2 midnights of hospital time to treat cellulitis and opiate withdrawals.
[2022-09-04] MEDS: METHADONE 10 MG TABLET PO ×2 (18:43→20:52)
[2022-09-04] MEDS: VANCOMYCIN 1,000 MG/200 ML PIGGYBACK 200 MG IV (18:43)
[2022-09-04 19:48] LABS: COVID19 -Nasal RAPID Negative (Negative)
[2022-09-04 20:06] LABS: MRSA (Nasal) PCR DETECTED (Not Detect)
[2022-09-04] MEDS: SODIUM CHLORIDE 0.9% FLUSH 10 ML IV (20:52)
[2022-09-05] MEDS: VANCOMYCIN 1,000 MG/200 ML PIGGYBACK 200 MG IV ×3 (01:12→17:45)
--- NOTE | 2022-09-05 02:45 | PC.NURSE ---
Addendum entered by Sharmin Bonilla R.N. 09/05/22 07:33: I agree with Kim RNs assessment, documentation, and interventions. Original Note: Night Note-Warm compresses wrapped around weeping, crusted skin from knees to ankles per patients request, then elevated. Silvadene ordered, not available until day shift when pharmacy in house.
[2022-09-05] MEDS: METHADONE 10 MG TABLET PO ×4 (04:48→20:57)
[2022-09-05 04:57] VITALS: BP 112/74; PULSE 99; RESP 18; TEMP 36.8; O2SAT 93
[2022-09-05 05:13] LABS: Add Manual Diff / Slide Review NO; Basophils Absolute Auto 0 /uL (0-100); Basophils Percent Auto 0.3 % (0-2); Eosinophils Absolute Auto 100 /uL (0-450); Eosinophils Percent Auto 0.4 % (2-4); Hematocrit 36.9 % (41-53); Hemoglobin 12.7 g/dL (13.5-17.5); Lymphocytes Absolute Auto 1800 /uL (1100-4500); Lymphocytes Percent Auto 11.2 % (25-40); Mean Corpuscular HGB Conc 34.5 % (30-36); Mean Corpuscular Hemoglobin 30.9 PG (26-34); Mean Corpuscular Volume 89.7 fL (80-100); Monocytes Absolute Auto 2400 /uL (0-900); Monocytes Percent Auto 15.2 % (3-14); Neutrophils Absolute Auto 11700 /uL (1500-7000); Neutrophils Percent Auto 72.9 % (50-75); Platelet Count 416 X10^3/uL (150-400); Red Blood Cell Count 4.11 X10^6/uL (4.5-5.9); Red Cell Distribution Width 12.9 % (11.6-14.8)
[2022-09-05 05:26] LABS: BUN Creatinine Ratio 14.3 (6-22); Blood Urea Nitrogen 11 mg/dL (9-20); Calcium 8.1 mg/dL (8.4-10.2); Carbon Dioxide 25 mmol/L (22-32); Chloride 100 mmol/L (98-107); Estimated Glomerular Filt Rate > 60 mL/min (>60); Glucose 123 mg/dL (70-100); HEMOLYSIS < 15 (0-50); Potassium 3.9 mmol/L (3.4-5.1); Sodium 131 mmol/L (137-145)
--- NOTE | 2022-09-05 08:14 | P.PN_ITS ---
Subjective Subjective Interval history: Patients opiate withdrawals are much better today. Methadone upped to 10mg QID from TID. Gen surg evaluated his inguinal hernia and said no surgery at this time, f/u outpatient. Exam Vital Signs (past 8 hours): - 09/05/22 04:57 Temperature 98.3 F Pulse Rate 99 H Respiratory Rate 18 Blood Pressure 112/74 Pulse Oximetry 93 Oxygen Flow Rate 0 Oxygen Delivery Method Room Air Oxygen Flow Rate 0 Narrative Exam Narrative: GEN: Pleasant male who appears older than stated age HEENT: moist mucous membranes, PERRL NECK: trachea midline, no JVD CV: regular rate and rhythm, no murmurs PULM: clear bilaterally ABD: soft, nontender, nondistended, no organomegaly Genitalia: Scrotum with currently reduced inguinal hernia on the left side EXT: Bilateral lower extremity venous stasis dermatitis with weeping clear drainage and possible cellulitis of the right leg with erythema, no significant swelling. Wrapped in gauze. NEURO: awake, alert, oriented, no focal deficits Objective Labs 09/05/22 05:00 09/05/22 05:00 Labs: Laboratory Results - last 24 hr 09/04/22 09/04/22 09/04/22 10:00 11:25 11:25 WBC 15.3 H RBC 4.01 L Hgb 12.7 L Hct 36.1 L MCV 90.1 MCH 31.6 MCHC 35.1 RDW 12.7 Plt Count 410 H Neut % (Auto) 70.7 Lymph % (Auto) 12.2 L [place] % (Auto) 16.4 H Eos % (Auto) 0.2 L Baso % (Auto) 0.5 Neut # (Auto) 81630 H Lymph # (Auto) 1900 [place] # (Auto) 2500 H Eos # (Auto) 0 Baso # (Auto) 100 Sodium 134 L Potassium 4.1 Chloride 97 L Carbon Dioxide 30 BUN 17 Creatinine 0.88 Estimated GFR > 60 BUN/Creatinine Ratio 19.3 Glucose 128 H Hemoglobin A1c Lactate Calcium 8.9 Magnesium Total Bilirubin 0.8 AST 31 ALT 41 Alkaline Phosphatase 90 Total Protein 7.8 Albumin 3.6 Globulin 4.2 H Albumin/Globulin Ratio 0.9 L Procalcitonin Urine RBC Urine WBC Ur Squamous Epith Cells Urine Bacteria Nasal Screen MRSA (PCR) U Opiates 300ng/mL cut Positive H Ur Oxycodone Screen Negative Urine Methadone Screen Negative Ur Barbiturates Screen Negative U Tricyclic Antidepress Negative Ur Phencyclidine Scrn Negative Ur Amphetamines Screen Positive H U Methamphetamines Scrn Positive H Ur MDMA Scrn (Ecstasy) Negative U Benzodiazepines Scrn Negative Urine Cocaine Screen Negative U Marijuana (THC) Screen Negative Ethyl Alcohol SARS-CoV-2 (PCR) 09/04/22 09/04/22 09/04/22 11:25 11:25 11:25 WBC RBC Hgb Hct MCV MCH MCHC RDW Plt Count Neut % (Auto) Lymph % (Auto) [place] % (Auto) Eos % (Auto) Baso % (Auto) Neut # (Auto) Lymph # (Auto) [place] # (Auto) Eos # (Auto) Baso # (Auto) Sodium Potassium Chloride Carbon Dioxide BUN Creatinine Estimated GFR BUN/Creatinine Ratio Glucose Hemoglobin A1c 5.2 Lactate Calcium Magnesium 2.3 Total Bilirubin AST ALT Alkaline Phosphatase Total Protein Albumin Globulin Albumin/Globulin Ratio Procalcitonin 0.49 Urine RBC Urine WBC Ur Squamous Epith Cells Urine Bacteria Nasal Screen MRSA (PCR) U Opiates 300ng/mL cut Ur Oxycodone Screen Urine Methadone Screen Ur Barbiturates Screen U Tricyclic Antidepress Ur Phencyclidine Scrn Ur Amphetamines Screen U Methamphetamines Scrn Ur MDMA Scrn (Ecstasy) U Benzodiazepines Scrn Urine Cocaine Screen U Marijuana (THC) Screen Ethyl Alcohol SARS-CoV-2 (PCR) 09/04/22 09/04/22 09/04/22 13:00 15:50 15:50 WBC RBC Hgb Hct MCV MCH MCHC RDW Plt Count Neut % (Auto) Lymph % (Auto) [place] % (Auto) Eos % (Auto) Baso % (Auto) Neut # (Auto) Lymph # (Auto) [place] # (Auto) Eos # (Auto) Baso # (Auto) Sodium Potassium Chloride Carbon Dioxide BUN Creatinine Estimated GFR BUN/Creatinine Ratio Glucose Hemoglobin A1c Lactate 1.4 Calcium Magnesium Total Bilirubin AST ALT Alkaline Phosphatase Total Protein Albumin Globulin Albumin/Globulin Ratio Procalcitonin Urine RBC 5-10/hpf H Urine WBC >100/hpf H Ur Squamous Epith Cells 1-5 /hpf Urine Bacteria Many (>30) H Nasal Screen MRSA (PCR) U Opiates 300ng/mL cut Ur Oxycodone Screen Urine Methadone Screen Ur Barbiturates Screen U Tricyclic Antidepress Ur Phencyclidine Scrn Ur Amphetamines Screen U Methamphetamines Scrn Ur MDMA Scrn (Ecstasy) U Benzodiazepines Scrn Urine Cocaine Screen U Marijuana (THC) Screen Ethyl Alcohol < 10 SARS-CoV-2 (PCR) 09/04/22 09/04/22 09/05/22 18:33 18:33 05:00 WBC 16.0 H RBC 4.11 L Hgb 12.7 L Hct 36.9 L MCV 89.7 MCH 30.9 MCHC 34.5 RDW 12.9 Plt Count 416 H Neut % (Auto) 72.9 Lymph % (Auto) 11.2 L [place] % (Auto) 15.2 H Eos % (Auto) 0.4 L Baso % (Auto) 0.3 Neut # (Auto) 78138 H Lymph # (Auto) 1800 [place] # (Auto) 2400 H Eos # (Auto) 100 Baso # (Auto) 0 Sodium Potassium Chloride Carbon Dioxide BUN Creatinine Estimated GFR BUN/Creatinine Ratio Glucose Hemoglobin A1c Lactate Calcium Magnesium Total Bilirubin AST ALT Alkaline Phosphatase Total Protein Albumin Globulin Albumin/Globulin Ratio Procalcitonin Urine RBC Urine WBC Ur Squamous Epith Cells Urine Bacteria Nasal Screen MRSA (PCR) Detected H U Opiates 300ng/mL cut Ur Oxycodone Screen Urine Methadone Screen Ur Barbiturates Screen U Tricyclic Antidepress Ur Phencyclidine Scrn Ur Amphetamines Screen U Methamphetamines Scrn Ur MDMA Scrn (Ecstasy) U Benzodiazepines Scrn Urine Cocaine Screen U Marijuana (THC) Screen Ethyl Alcohol SARS-CoV-2 (PCR) Negative 09/05/22 05:00 WBC RBC Hgb Hct MCV MCH MCHC RDW Plt Count Neut % (Auto) Lymph % (Auto) [place] % (Auto) Eos % (Auto) Baso % (Auto) Neut # (Auto) Lymph # (Auto) [place] # (Auto) Eos # (Auto) Baso # (Auto) Sodium 131 L Potassium 3.9 Chloride 100 Carbon Dioxide 25 BUN 11 Creatinine 0.77 Estimated GFR > 60 BUN/Creatinine Ratio 14.3 Glucose 123 H Hemoglobin A1c Lactate Calcium 8.1 L Magnesium Total Bilirubin AST ALT Alkaline Phosphatase Total Protein Albumin Globulin Albumin/Globulin Ratio Procalcitonin Urine RBC Urine WBC Ur Squamous Epith Cells Urine Bacteria Nasal Screen MRSA (PCR) U Opiates 300ng/mL cut Ur Oxycodone Screen Urine Methadone Screen Ur Barbiturates Screen U Tricyclic Antidepress Ur Phencyclidine Scrn Ur Amphetamines Screen U Methamphetamines Scrn Ur MDMA Scrn (Ecstasy) U Benzodiazepines Scrn Urine Cocaine Screen U Marijuana (THC) Screen Ethyl Alcohol SARS-CoV-2 (PCR) [facility] Social History household members: none Smoking Status: Current every day smoker alcohol intake: current Assessment & Plan Assessment & Plan narrative: # RLE cellulitis, bilateral venous stasis dermatitis -WBC 15, procal 0.5 -RLE worse than right with erythema and significant pain to touch -start rocephin and vanc, previous wound cultures grew MRSA -f/u blood cultures -daily wound care with vigorous cleaning of legs, silvadene ointment and kerlix wraps -will prob dc on bactrim vs doxy po to finish 7 day course # UTI -UA with significant pyuria >100 WBC -abx as above -urine culture with GNB # polysubstance abuse with acute fentanyl withdrawals, improving -patient admits to smoking fentanyl, marijuana and using meth -UDS positive for meth, opiates. Check urine fentanyl. -patient interested in starting methadone to get off opiates -methadone increased to 10mg QID, oxy for breakthrough pain -GALVANIZING POT RUNNER consult -will f/u at [facility] for ongoing maintenance and GALVANIZING POT RUNNER has referred to [facility] as well # left inguinal hernia into scrotum -Dr. Lindsey gen surg evaluated and it was reducible -no surgery at this time, f/u with gen surg as outpatient Code status is full code. COVID negative. DVT prophylaxis with Lovenox. Proxy is sister Zoe Foster. Dispo: Home in 1-2 days. Quality VTE Deep Vein Thrombosis/Pulmonary Embolism Present on Admission: No
[2022-09-05] MEDS: OXYCODONE IR 5 MG TABLET 10 MG PO (09:04)
[2022-09-05] MEDS: ENOXAPARIN 40 MG/0.4 ML SYRINGE SUBCUT (09:05)
[2022-09-05] MEDS: SODIUM CHLORIDE 0.9% FLUSH 10 ML IV ×2 (09:06→20:58)
[2022-09-05] MEDS: HYDROMORPHONE 2 MG INJ IV (10:37)
[2022-09-05] MEDS: SILVER SULFADIAZINE 1% CREAM 50 GM 1 APPLIC TOP (10:39)
--- NOTE | 2022-09-05 11:15 | DIET.CONS ---
Addendum entered by Lucía Shell 09/05/22 12:00: RD agrees with kinesiology internship note below. Original Note: Dietary Consultation Note Admission Date: 09/04/2022 17:04 Assessment: 52 y/o M with PMH of polysubstance use (amphetamines, opioids, THC), venous insufficiency, inguinal hernia, and tobacco use who presents with worsening pain, redness and weeping of his RLE. RD consulted for LE wounds and possible malnutrition. Met with pt at bedside to discuss current dietary intake and assess for malnutrition. Pt reports consuming only 1 meal/day in the past yr, notes having an EBT card, and has upper and lower dentures. Pt notes UBW is 77-79 kg but mentions decrease in muscle mass. 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 Notes being bankrupt and has filed for disability. Lives in shed (with electricity) next to sister. Has been sleeping on floor d/t not being able to get into bed. Pt was very emotional and ready to stop substance use. Wants to get established at the [facility] methadone clinic. Ht: 182.88 cm Wt: 77.111 kg BMI: 23.0 UBW: 77-79 kg (pt reported) Last BM: 09/04/22 (09/04/22 18:21) MNA: 12 El Score: 18 Diet: 09/05/22 08:02 NPO Diet Diet Modifications: NPO Type: NPO except for Meds 09/05/22 Lunch General (Regular) Diet Diet Modifications: Nutrition Percent Meal Consumed 0% 09/05/22 10:59 Labs: RBC 4.11 X10^6/uL (4.5-5.9) L 09/05/22 05:00 Hgb 12.7 g/dL (13.5-17.5) L 09/05/22 05:00 Hct 36.9 % (41-53) L 09/05/22 05:00 Creatinine 0.77 mg/dL (0.66-1.25) 09/05/22 05:00 Hemoglobin A1c 5.2 % (4.0-6.0) 09/04/22 11:25 Lactate 1.4 mmol/L (0.7-2.1) 09/04/22 15:50 Nutrition Diagnosis: chronic moderate malnutrition r/t 42 yr polysubstance use hx and food insecurity aeb poor appetite from substance use, <50% EER intake for past yr, mild muscle mass loss, substance withdrawal, upper and lower dentures, lives in a shed with electricity, chronic leg wounds with the inability to work. Interventions: d/t pts emotional state nutrition interventions limited to assistance with ordering lunch meal, encouraging protein intake, and sobriety support. EER: 8227-2446 kcal (25-30 kcal/kg per BMI), 115-150 g protein (1.5-2.0 per PCM) Monitoring/Evaluations: RD consult prn. Electronically Signed by: Maxine Knott 09/05/22 11:15 Clinical Dietitian [address] [address]
[2022-09-05 12:00] VITALS: BP 127/68; PULSE 80; RESP 21; TEMP 37.6; O2SAT 95
--- NOTE | 2022-09-05 13:24 | CM.DPC ---
DCP Cont: Per MD, pt started on Methadone for his withdrawals and seems to be tolerating well and to have his wound dressing changes completed and technician trainee consult for wound healing and malnutrition. Pt still receiving IV-Abx for cellulitis and not medically stable to d/c yet. SW met briefly bedside with pt and explained role and he confirms he is feeling quite a bit better and SW confirmed that pt would prefer to get established at [facility] for Methadone tx as [facility] in [place] does not prescribe methadone but Subutex and Suboxone which pt does not feel have helped him manage his YOSELIN. Pt states he drives and has access to a vehicle and does not feel transport to [facility] would be a barrier. Pt confirms he has friends and his sister who can provide transport home at d/c. Pt's [employer] HO would be a barrier to Home Health and his long hx of YOSELIN. Pt preference is home with outpt f/u and YOSELIN tx. Denies any needs at this time. Plan: SW to follow for ongoing wound care and progress to confirm safe plan of d/c to home via POV and outpt resources provided. Rama Katz MSW
[2022-09-05 17:00] VITALS: BP 113/65; PULSE 82; RESP 17; TEMP 37.2; O2SAT 97
[2022-09-05] MEDS: VANCOMYCIN TROUGH 1 REQUEST MISC (17:38)
[2022-09-05] MEDS: cefTRIAXone 1,000 MG in SODIUM CHLORIDE 0.9% 100 ML 200 MG IV (17:38)
[2022-09-05] MEDS: NICOTINE 21 MG PATCH TOP ×2 (17:38→22:25)
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
[2022-09-06] VITALS: BP 116/69; PULSE 85; RESP 23; TEMP 36.9; O2SAT 92
[2022-09-06] MEDS: SODIUM CHLORIDE 0.9% 250 ML 21 ML IV ×2 (01:00→16:30)
[2022-09-06] MEDS: VANCOMYCIN 1,000 MG/200 ML PIGGYBACK 200 MG IV ×2 (01:01→09:20)
[2022-09-06] MEDS: METHADONE 10 MG TABLET PO ×4 (02:50→20:53)
[2022-09-06 05:35] VITALS: BP 121/67; PULSE 82; RESP 18; TEMP 36.5; O2SAT 92
[2022-09-06 07:17] LABS: Add Manual Diff / Slide Review NO; Basophils Absolute Auto 100 /uL (0-100); Basophils Percent Auto 0.7 % (0-2); Eosinophils Absolute Auto 200 /uL (0-450); Eosinophils Percent Auto 1.2 % (2-4); Hematocrit 37.8 % (41-53); Hemoglobin 12.9 g/dL (13.5-17.5); Lymphocytes Absolute Auto 2000 /uL (1100-4500); Lymphocytes Percent Auto 15.3 % (25-40); Mean Corpuscular HGB Conc 34.1 % (30-36); Mean Corpuscular Volume 90.9 fL (80-100); Monocytes Absolute Auto 1600 /uL (0-900); Monocytes Percent Auto 12.9 % (3-14); Neutrophils Absolute Auto 8900 /uL (1500-7000); Neutrophils Percent Auto 69.9 % (50-75); Platelet Count 406 X10^3/uL (150-400); Red Blood Cell Count 4.15 X10^6/uL (4.5-5.9); Red Cell Distribution Width 12.7 % (11.6-14.8); White Blood Cell Count 12.8 X10^3/uL (4.5-11.0)
[2022-09-06 07:21] LABS: BUN Creatinine Ratio 13.6 (6-22); Blood Urea Nitrogen 11 mg/dL (9-20); Calcium 8.4 mg/dL (8.4-10.2); Carbon Dioxide 25 mmol/L (22-32); Chloride 102 mmol/L (98-107); Estimated Glomerular Filt Rate > 60 mL/min (>60); Glucose 99 mg/dL (70-100); HEMOLYSIS < 15 (0-50); Potassium 4.3 mmol/L (3.4-5.1); Sodium 133 mmol/L (137-145)
[2022-09-06 08:00] VITALS: BP 131/93; PULSE 89; RESP 17; TEMP 36.2; O2SAT 94
[2022-09-06] MEDS: VANCOMYCIN TROUGH 1 REQUEST MISC (09:20)
[2022-09-06] MEDS: SODIUM CHLORIDE 0.9% FLUSH 10 ML IV ×2 (09:20→20:53)
[2022-09-06] MEDS: NICOTINE 21 MG PATCH TOP ×2 (09:21→23:54)
[2022-09-06 09:39] LABS: Vancomycin Trough 9.3 ug/mL (10-20)
[2022-09-06 12:00] VITALS: BP 126/74; PULSE 74; RESP 15; TEMP 36.8; O2SAT 96
[2022-09-06] MEDS: OXYCODONE IR 5 MG TABLET 10 MG PO (12:08)
[2022-09-06] MEDS: HYDROMORPHONE 2 MG INJ IV ×2 (14:18→17:00)
[2022-09-06] MEDS: SILVER SULFADIAZINE 1% CREAM 400 GM 1 APPLIC TOP (15:05)
--- NOTE | 2022-09-06 15:42 | CM.DPC ---
DCP Cont: Discussed patient during team rounds. He is continuing with IV ABO. Plan is for him to get established over at [facility] at discharge. Can call for patient during discharge to ensure that he has a follow up appointment, therefor, for his Methadone. Patient does not have a current PCP, during last hospital visit, went home and completed his ABO, but did not get established with a new provider. Home health would not be an option, for it is noted that patient is driving, and has no provider as well as his [employer] insurance could also be a barrier. P: DCP to continue to follow. Plan is home when stable, notes from [facility] indicate that patient has family to fish bait picker upon discharge. Caitlin Mills RN/Wad Impregnator
[2022-09-06] MEDS: VANCOMYCIN 1,250 MG/250 ML PIGGYBACK 250 MG IV ×2 (17:00→23:54)
--- NOTE | 2022-09-06 17:17 | P.PN_ITS ---
Subjective Subjective Interval history: Patient indicates that the methadone is helping with his withdrawal symptoms. Based on the methadone he is not craving narcotics. Appreciated the dose of Dilaudid prior to dressing change. Is focused on continuing the methadone program once he is discharged. Exam Vital Signs (past 8 hours): - 09/06/22 12:00 Temperature 98.2 F Pulse Rate 74 Respiratory Rate 15 Blood Pressure 126/74 Pulse Oximetry 96 Oxygen Flow Rate 0 Oxygen Delivery Method Room Air Oxygen Flow Rate 0 Narrative Exam Narrative: GEN:? Pleasant male who appears older than stated age. In no acute medical distress HEENT: moist mucous membranes, PERRL NECK: trachea midline, no JVD CV: regular rate and rhythm, no murmurs PULM: clear bilaterally ABD: soft, nontender, nondistended, no organomegaly EXT:? Bilateral lower extremity venous stasis dermatitis with weeping clear drainage and possible cellulitis of the right leg with erythema, no significant swelling. Dressing change today. NEURO: awake, alert, oriented, no focal deficits Objective Labs 09/06/22 06:11 09/06/22 06:11 Labs: Laboratory Results - last 24 hr 09/05/22 09/06/22 09/06/22 17:03 06:11 06:11 WBC 12.8 H RBC 4.15 L Hgb 12.9 L Hct 37.8 L MCV 90.9 MCH 31.0 MCHC 34.1 RDW 12.7 Plt Count 406 H Neut % (Auto) 69.9 Lymph % (Auto) 15.3 L [place] % (Auto) 12.9 Eos % (Auto) 1.2 L Baso % (Auto) 0.7 Neut # (Auto) 8900 H Lymph # (Auto) 2000 [place] # (Auto) 1600 H Eos # (Auto) 200 Baso # (Auto) 100 Sodium 133 L Potassium 4.3 Chloride 102 Carbon Dioxide 25 BUN 11 Creatinine 0.81 Estimated GFR > 60 BUN/Creatinine Ratio 13.6 Glucose 99 Calcium 8.4 Vancomycin Trough Cancelled 09/06/22 09:00 WBC RBC Hgb Hct MCV MCH MCHC RDW Plt Count Neut % (Auto) Lymph % (Auto) [place] % (Auto) Eos % (Auto) Baso % (Auto) Neut # (Auto) Lymph # (Auto) [place] # (Auto) Eos # (Auto) Baso # (Auto) Sodium Potassium Chloride Carbon Dioxide BUN Creatinine Estimated GFR BUN/Creatinine Ratio Glucose Calcium Vancomycin Trough 9.3 L PFSH Social History household members: none Smoking Status: Current every day smoker alcohol intake: current Assessment & Plan Assessment & Plan narrative: # RLE cellulitis, bilateral venous stasis dermatitis -WBC 15, procal 0.5 -RLE worse than right with erythema and significant pain to touch -start rocephin and vanc, previous wound cultures grew MRSA - continue, can downgrade to oral once stable WBC -f/u blood cultures - no growth -daily wound care with vigorous cleaning of legs, silvadene ointment and kerlix wraps -will prob dc on bactrim vs doxy po to finish 7 day course # UTI -UA with significant pyuria >100 WBC -abx as above -urine culture with GNB # polysubstance abuse with acute fentanyl withdrawals, improving -patient admits to smoking fentanyl, marijuana and using meth -UDS positive for meth, opiates. Check urine fentanyl. -patient interested in starting methadone to get off opiates -methadone increased to 10mg QID, oxy for breakthrough pain -POWER GENERATION PLANT OPERATOR consult -will f/u at [facility] for ongoing maintenance and POWER GENERATION PLANT OPERATOR has referred to [facility] as well # left inguinal hernia into scrotum -Dr. Lindsey gen surg evaluated and it was reducible -no surgery at this time, f/u with gen surg as outpatient Code status is full code. COVID negative. DVT prophylaxis with Lovenox. Proxy is sister Zoe Foster. Quality VTE Deep Vein Thrombosis/Pulmonary Embolism Present on Admission: No
[2022-09-06 18:00] VITALS: BP 136/64; PULSE 81; RESP 18; TEMP 36.9; O2SAT 96
[2022-09-06] MEDS: cefTRIAXone 1,000 MG in SODIUM CHLORIDE 0.9% 100 ML 200 MG IV (18:20)
[2022-09-06 19:35] VITALS: BP 125/75; PULSE 83; RESP 19; O2SAT 97
[2022-09-07 02:05] VITALS: BP 140/68; PULSE 77; RESP 20; TEMP 36.4; O2SAT 94
[2022-09-07] MEDS: METHADONE 10 MG TABLET PO ×2 (02:54→09:01)
[2022-09-07] MEDS: VANCOMYCIN 1,250 MG/250 ML PIGGYBACK 250 MG IV (08:11)
[2022-09-07 08:37] LABS: Add Manual Diff / Slide Review NO; Basophils Absolute Auto 100 /uL (0-100); Basophils Percent Auto 0.8 % (0-2); Eosinophils Absolute Auto 300 /uL (0-450); Eosinophils Percent Auto 2.7 % (2-4); Hematocrit 40.5 % (41-53); Lymphocytes Absolute Auto 2100 /uL (1100-4500); Lymphocytes Percent Auto 17.9 % (25-40); Mean Corpuscular HGB Conc 34.6 % (30-36); Mean Corpuscular Hemoglobin 31.1 PG (26-34); Mean Corpuscular Volume 89.9 fL (80-100); Monocytes Absolute Auto 1300 /uL (0-900); Monocytes Percent Auto 11.7 % (3-14); Neutrophils Absolute Auto 7700 /uL (1500-7000); Neutrophils Percent Auto 66.9 % (50-75); Platelet Count 397 X10^3/uL (150-400); Red Cell Distribution Width 12.9 % (11.6-14.8); White Blood Cell Count 11.5 X10^3/uL (4.5-11.0)
[2022-09-07 08:46] LABS: BUN Creatinine Ratio 20.6 (6-22); Blood Urea Nitrogen 13 mg/dL (9-20); Calcium 8.7 mg/dL (8.4-10.2); Carbon Dioxide 24 mmol/L (22-32); Chloride 102 mmol/L (98-107); Estimated Glomerular Filt Rate > 60 mL/min (>60); Glucose 118 mg/dL (70-100); HEMOLYSIS 19 (0-50); Potassium 4.2 mmol/L (3.4-5.1); Sodium 134 mmol/L (137-145)
[2022-09-07] MEDS: ENOXAPARIN 40 MG/0.4 ML SYRINGE SUBCUT (09:01)
[2022-09-07] MEDS: CIPROFLOXACIN 250 MG TABLET 500 MG PO ×2 (09:04→20:50)
--- NOTE | 2022-09-07 10:28 | PC.NURSE ---
Addendum entered by Katie Sanchez R.N. 09/07/22 17:16: Dressing change done post dilaudid dose. Pt tolerated extremely well. BLE dry and flaky with small, scattered, healing wounds. Silv. cream applied, BLE wrapped with Kerlix and fastened with tape. Addendum entered by Katie Sanchez R.N. 09/07/22 15:29: Methadone one-time dose given. Pt requests dilaudid with dressing change, scheduled for safe admin. Original Note: Pt alert, denies pain. BLE dressings C/D/I.
[2022-09-07 13:00] VITALS: BP 120/58; PULSE 80; RESP 16; TEMP 36.4; O2SAT 95
--- NOTE | 2022-09-07 13:58 | PM.PN.1 ---
Subjective Subjective Interval history: Prior stay of wanting to sleep quite a bit. Otherwise no new complaints. Exam Vital Signs (past 8 hours): - 09/07/22 13:00 Temperature 97.6 F Pulse Rate 80 Respiratory Rate 16 Blood Pressure 120/58 L Pulse Oximetry 95 Oxygen Delivery Method Room Air Oxygen Flow Rate 0 Narrative Exam Narrative: GEN:? Pleasant male who appears older than stated age.? In no acute medical distress. Tired today. HEENT: moist mucous membranes, PERRL NECK: trachea midline, no JVD CV: regular rate and rhythm, no murmurs PULM: clear bilaterally ABD: soft, nontender, nondistended, no organomegaly EXT:? Bilateral lower extremity venous stasis dermatitis with weeping clear drainage and possible cellulitis of the right leg with erythema, no significant swelling.? Currently dressed. NEURO: awake, alert, oriented, no focal deficits Objective Labs 09/07/22 08:15 09/07/22 08:15 Labs: Laboratory Results - last 24 hr 09/07/22 09/07/22 08:15 08:15 WBC 11.5 H RBC 4.50 Hgb 14.0 Hct 40.5 L MCV 89.9 MCH 31.1 MCHC 34.6 RDW 12.9 Plt Count 397 Neut % (Auto) 66.9 Lymph % (Auto) 17.9 L [place] % (Auto) 11.7 Eos % (Auto) 2.7 Baso % (Auto) 0.8 Neut # (Auto) 7700 H Lymph # (Auto) 2100 [place] # (Auto) 1300 H Eos # (Auto) 300 Baso # (Auto) 100 Sodium 134 L Potassium 4.2 Chloride 102 Carbon Dioxide 24 BUN 13 Creatinine 0.63 L Estimated GFR > 60 BUN/Creatinine Ratio 20.6 Glucose 118 H Calcium 8.7 PFSH Social History household members: none Smoking Status: Current every day smoker alcohol intake: current Assessment & Plan Assessment & Plan narrative: # RLE cellulitis, bilateral venous stasis dermatitis -WBC 15, procal 0.5 -RLE worse than right with erythema and significant pain to touch -start rocephin and vanc, previous wound cultures grew MRSA -now on oral medication of Cipro and will transition to a Septra DS for MRSA coverage. -f/u blood cultures - no growth -daily wound care with vigorous cleaning of legs, silvadene ointment and kerlix wraps # UTI -UA with significant pyuria >100 WBC -abx as above -urine culture with GNB-E coli treating with Cipro # polysubstance abuse with acute fentanyl withdrawals, improving -patient admits to smoking fentanyl, marijuana and using meth -UDS positive for meth, opiates. Check urine fentanyl. -patient interested in starting methadone to get off opiates -methadone increased to 10mg QID, oxy for breakthrough pain -DIRECTOR TRANSLATION consult -will f/u at [facility] for ongoing maintenance and DIRECTOR TRANSLATION has referred to [facility] as well -patient has been transitioned to daily methadone dose which is 40 mg daily if no OxyContin breakthrough pain today then continue this dose on discharge # left inguinal hernia into scrotum -Dr. Lindsey gen surg evaluated and it was reducible -no surgery at this time, f/u with gen surg as outpatient Code status is full code. COVID negative. DVT prophylaxis with Lovenox. Proxy is sister Zoe Foster. Quality VTE Deep Vein Thrombosis/Pulmonary Embolism Present on Admission: No
[2022-09-07] MEDS: METHADONE 10 MG TABLET 30 MG PO (15:17)
[2022-09-07] MEDS: HYDROMORPHONE 2 MG INJ IV (16:13)
[2022-09-07] MEDS: TRIMETH/SULFA 160/800 (DS) TABLET 1 TAB PO ×2 (16:15→20:51)
[2022-09-07] MEDS: SILVER SULFADIAZINE 1% CREAM 400 GM 1 APPLIC TOP (16:16)
[2022-09-07] MEDS: SODIUM CHLORIDE 0.9% FLUSH 10 ML IV ×2 (17:42→20:51)
[2022-09-07 18:00] VITALS: BP 128/74; PULSE 83; RESP 16; O2SAT 95
[2022-09-07] MEDS: NICOTINE 21 MG PATCH TOP (20:50)
[2022-09-07] MEDS: polyethylene glycoL 3350 17 GM POWD.PACK PO (20:50)
[2022-09-07] MEDS: SENNOSIDES 8.6 MG TABLET PO (20:51)
[2022-09-07] MEDS: METHADONE 10 MG TABLET 20 MG PO (22:44)
[2022-09-08] VITALS: BP 122/81; PULSE 74; RESP 18; TEMP 36.6; O2SAT 95
[2022-09-08 06:00] VITALS: BP 148/81; PULSE 97; RESP 22; TEMP 36.7; O2SAT 95
[2022-09-08] MEDS: METHADONE 10 MG TABLET PO ×3 (06:13→14:01)
[2022-09-08] MEDS: SODIUM CHLORIDE 0.9% FLUSH 10 ML IV ×2 (06:13→09:28)
[2022-09-08] MEDS: CIPROFLOXACIN 250 MG TABLET 500 MG PO (06:26)
--- NOTE | 2022-09-08 06:29 | PC.NURSE ---
Methadone orders were adjusted yesterday from 10 mg 4x day to 40 mg 1x day. Pt woke twice during night experiencing withdrawal symptoms at 2230 & 0530, agitated and angry, stating he will leave if this keeps going. At 2230 CONDENSER SETTER Miranda ordered methadone 20 mg, and at 0530 returned him to his previous dosage of 10 mg 4x day.
[2022-09-08 06:51] LABS: Add Manual Diff / Slide Review NO; Basophils Absolute Auto 100 /uL (0-100); Eosinophils Absolute Auto 300 /uL (0-450); Eosinophils Percent Auto 3.2 % (2-4); Hematocrit 40.2 % (41-53); Hemoglobin 13.8 g/dL (13.5-17.5); Lymphocytes Absolute Auto 2300 /uL (1100-4500); Lymphocytes Percent Auto 21.2 % (25-40); Mean Corpuscular HGB Conc 34.4 % (30-36); Mean Corpuscular Volume 90.4 fL (80-100); Monocytes Absolute Auto 1000 /uL (0-900); Monocytes Percent Auto 9.4 % (3-14); Neutrophils Absolute Auto 7200 /uL (1500-7000); Neutrophils Percent Auto 65.2 % (50-75); Platelet Count 494 X10^3/uL (150-400); Red Blood Cell Count 4.45 X10^6/uL (4.5-5.9)
[2022-09-08 06:55] LABS: Alanine Aminotransferase 44 IU/L (<50); Albumin 3.4 g/dL (3.5-5.0); Albumin Globulin Ratio 0.8 (1.0-2.8); Alkaline Phosphatase 110 U/L (38-126); Aspartate Aminotransferase 36 IU/L (17-59); BUN Creatinine Ratio 18.5 (6-22); Bilirubin Total 0.3 mg/dL (0.2-1.3); Blood Urea Nitrogen 15 mg/dL (9-20); Calcium 8.9 mg/dL (8.4-10.2); Carbon Dioxide 25 mmol/L (22-32); Chloride 103 mmol/L (98-107); Estimated Glomerular Filt Rate > 60 mL/min (>60); Globulin 4.3 g/dL (1.7-4.1); Glucose 120 mg/dL (70-100); HEMOLYSIS < 15 (0-50); Potassium 4.7 mmol/L (3.4-5.1); Sodium 136 mmol/L (137-145); Total Protein 7.7 g/dL (6.3-8.2)
[2022-09-08 07:00] VITALS: BP 109/65; PULSE 72; RESP 17; TEMP 36.3; O2SAT 95
--- NOTE | 2022-09-08 09:08 | CM.DPC ---
Addendum entered by Caitlin Mills R.N. 09/08/22 13:19: Left Selena Freeman at [facility], another message, as she is in charge of admissions, that patient is to discharge today. Gave her the phone number if this family preservation caseworker, should she have any questions. Addendum entered by Caitlin Mills R.N. 09/08/22 13:11: Was going to set up transportation, did not have discharge orders as of yet. Faxed over to [facility], and confirmed that patient has transportation benefit. They were going to call back to see if they could pick him up at 1500. Did have to call them back with the provider number and date of . Did call them back with updated information. Hospitalist came in and asked if patient had been talked to about taxi, let her know that this DC Ui Developer [employer] was waiting for her discharge orders, and had not yet confirmed time. This DC [employer] spoke to patient to update him, he was already on the phone with his sister, who indicated that she could come and pick him up, was leaving [place]. Updated Dr. Quinones, who will complete DC orders. Have not yet heard back from [facility], will call them back. Will update transportation as well. Addendum entered by Caitlin Mills R.N. 09/08/22 12:05: Discussed patient during team rounds. Patient has also attempted to get in touch with [facility], they have not yet called this family preservation caseworker back. Dr. Quinones may discharge patient today, would be ready at about 1500, and would plan on sending his script for Methadone to [facility], to alleviate a pharmacy stop. Went ahead and faxed over a request for slate picker from [facility], asked if slate picker can occur at about 1500. Have not yet confirmed, and still have no DC orders as of yet. Original Note: DCP Cont: Called over at [facility] to see about upcoming appointment. Spoke to medical receptionist assistant, stated that last appointment last Thursday was supposed to be a new intake. She let this DC U[employer] Developer [employer] know to speak to the admission coordinator, Selena, she has his records. Was transferred to [facility], left a message that patient needs another appointment, preferrably tomorrow if possible. Gave her name and number of this DC U[employer] Developer [employer] to call back. P: DCP to continue to follow. Plan is home when stable, but will need to follow up at [facility] for his meds, and possible wound care. Caitlin Mills RN/Cloth Cutting Machine Operator
[2022-09-08] MEDS: TRIMETH/SULFA 160/800 (DS) TABLET 1 TAB PO (09:27)
[2022-09-08] MEDS: METHADONE 10 MG TABLET 30 MG PO (09:27)
[2022-09-08] MEDS: ENOXAPARIN 40 MG/0.4 ML SYRINGE SUBCUT (09:27)
[2022-09-08 12:00] VITALS: BP 121/65; PULSE 98; RESP 17; TEMP 37.3; O2SAT 97
--- NOTE | 2022-09-08 13:44 | PM.DS.1 ---
History of Present Illness History of Present Illness Date Patient Seen: 09/08/22 Chief complaint: skin peeling off from knees to ankels Discharge Providers Provider Date of admission: 09/04/22 17:04 Discharge Date: 09/08/22 Consults: 09/04/22 09:16 Consult to COMMUNICATIONS PROJECT MANAGER - Grants Officer Stat Comment: 09/04/22 18:18 Consult to Dietitian, Adult Routine Comment: Reason For Exam: LE wounds, heroin user, appears malnourished 09/05/22 08:23 Consult to General Surgery Routine Comment: Consulting Provider: Cecelia Lindsey Reason for consultation: painful inguinal hernia into scrotum Has provider been notified: Yes Discharge provider: Tabatha Jordan MD Summary Hospital Course Hospital Course: Rory Hickman is a 52yo male with PMH of polysubstance use of heroin and meth, venous insufficiency, inguinal hernia, and tobacco use who presented with worsening pain, redness and weeping of his RLE.? He wrapped his legs in cut up underwear then put jeans over them and left it on for 5 days and when he took it off he noticed his legs were crusted, raw and weeping. His right leg is extremely painful. Patient says it has began to worsen since he stopped using IV heroin and switched to smoking fentanyl. He was smoking up to 30 tabs of fentanyl per day. He was currently withdrawing on presentation and would like to start methadone to stop using drugs and get established at the [facility] methadone clinic. Patient was initiated on methadone during the hospital stay. At the time of discharge his methadone dose was 70 mg during the day. Apparently in the past he has been up to 130 mg a day for methadone for ongoing treatment and therefore his dose may need to be increased by the methadone clinic. Due to positive culture of E coli in previous nasal swab positive for MRSA the patient was placed on Cipro and Septra DS b.i.d.. These will be continued on discharge and prescriptions were written. Patient will be followed by the [facility] clinic on discharge. Status at Discharge Cognitive/behavioral status at discharge: at baseline, oriented Functional status at discharge: independent ambulation Overall status at discharge: patient is back to baseline Time Spent with Patient Time spent: Greater than 30 minutes Time spent discussing smoking cessation with patient: more than 10 minutes Exam Vital Signs (past 8 hours): - 09/08/22 06:00 09/08/22 07:00 Temperature 98.1 F 97.3 F L Pulse Rate 97 H 72 Respiratory Rate 22 17 Blood Pressure 148/81 H 109/65 Pulse Oximetry 95 95 Oxygen Flow Rate 0 0 Oxygen Delivery Method Room Air Oxygen Flow Rate 0 Narrative Exam Narrative: GEN:? Pleasant male who appears older than stated age.? In no acute medical distress.? Tired today. HEENT: moist mucous membranes, PERRL NECK: trachea midline, no JVD CV: regular rate and rhythm, no murmurs PULM: clear bilaterally ABD: soft, nontender, nondistended, no organomegaly EXT:? Bilateral lower extremity venous stasis dermatitis with weeping clear drainage and possible cellulitis of the right leg with erythema, no significant swelling.? Currently dressed. NEURO: awake, alert, oriented, no focal deficits Objective Labs 09/08/22 06:35 09/08/22 06:35 Labs: Laboratory Results - last 24 hr 09/08/22 09/08/22 06:35 06:35 WBC 11.0 RBC 4.45 L Hgb 13.8 Hct 40.2 L MCV 90.4 MCH 31.0 MCHC 34.4 RDW 13.0 Plt Count 494 H Neut % (Auto) 65.2 Lymph % (Auto) 21.2 L [place] % (Auto) 9.4 Eos % (Auto) 3.2 Baso % (Auto) 1.0 Neut # (Auto) 7200 H Lymph # (Auto) 2300 [place] # (Auto) 1000 H Eos # (Auto) 300 Baso # (Auto) 100 Sodium 136 L Potassium 4.7 Chloride 103 Carbon Dioxide 25 BUN 15 Creatinine 0.81 Estimated GFR > 60 BUN/Creatinine Ratio 18.5 Glucose 120 H Calcium 8.9 Total Bilirubin 0.3 AST 36 ALT 44 Alkaline Phosphatase 110 Total Protein 7.7 Albumin 3.4 L Globulin 4.3 H Albumin/Globulin Ratio 0.8 L PFSH Social History household members: none Smoking Status: Current every day smoker alcohol intake: current Discharge Plan Discharge Plan Patient Disposition: Home Provider Discharge Comment: Patient will be discharged to go to methadone clinic at 5:30 a.m. on September 09. Patient will have methadone dispensed and wound care done at the clinic. On September 08 the total methadone dose was 70 mg. There is a possibility that this may need to be increased the fact that the patient reports he has been on as high as 130 mg daily for methadone in the past. Discharge orders & Medications Prescriptions: New sennosides [senna] 8.6 mg Tablet 8.6 mg PO BID PRN (Reason: Constipation) Qty: 20 0RF polyethylene glycol 3350 17 gram Powder In Packet 17 g PO DAILY PRN (Reason: Constipation) Qty: 14 0RF melatonin 3 mg Tablet 6 mg PO BEDTIME PRN (Reason: Insomnia) Qty: 14 0RF ciprofloxacin HCl 250 mg Tablet 500 mg PO 0700,2100 Qty: 7 0RF Rx Instructions: First dose the evening of November 08 sulfamethoxazole-trimethoprim 800-160 mg Tablet 1 tab PO BID Qty: 7 0RF Rx Instructions: First dose the evening of September 08 nicotine 21 mg/24 hr Patch 24 Hour 21 mg topical BEDTIME Qty: 28 0RF Visit Report/Discharge Packet Stand Alone Forms: Patient Portal/API, Stroke Signs & Symptoms Quality VTE Deep Vein Thrombosis/Pulmonary Embolism Present on Admission: No
[2022-09-08] MEDS: HYDROMORPHONE 2 MG INJ IV (14:00)
[2022-09-08] MEDS: METHADONE 10 MG TABLET 20 MG PO (14:00)
--- NOTE | 2022-09-08 14:02 | P.PN_ITS ---
Subjective Subjective Interval history: Having some increased weakness on left side as well as decreased speech patterns today compared to yesterday afternoon. Being officially assessed by speech therapy later today. Exam Vital Signs (past 8 hours): - 09/08/22 07:00 09/08/22 12:00 Temperature 97.3 F L 99.1 F Pulse Rate 72 98 H Respiratory Rate 17 17 Blood Pressure 109/65 121/65 Pulse Oximetry 95 97 Oxygen Flow Rate 0 0 Oxygen Delivery Method Room Air Oxygen Flow Rate 0 Objective Labs 09/08/22 06:35 09/08/22 06:35 Labs: Laboratory Results - last 24 hr 09/08/22 09/08/22 06:35 06:35 WBC 11.0 RBC 4.45 L Hgb 13.8 Hct 40.2 L MCV 90.4 MCH 31.0 MCHC 34.4 RDW 13.0 Plt Count 494 H Neut % (Auto) 65.2 Lymph % (Auto) 21.2 L [place] % (Auto) 9.4 Eos % (Auto) 3.2 Baso % (Auto) 1.0 Neut # (Auto) 7200 H Lymph # (Auto) 2300 [place] # (Auto) 1000 H Eos # (Auto) 300 Baso # (Auto) 100 Sodium 136 L Potassium 4.7 Chloride 103 Carbon Dioxide 25 BUN 15 Creatinine 0.81 Estimated GFR > 60 BUN/Creatinine Ratio 18.5 Glucose 120 H Calcium 8.9 Total Bilirubin 0.3 AST 36 ALT 44 Alkaline Phosphatase 110 Total Protein 7.7 Albumin 3.4 L Globulin 4.3 H Albumin/Globulin Ratio 0.8 L PFSH Social History household members: none Smoking Status: Current every day smoker alcohol intake: current Quality VTE Deep Vein Thrombosis/Pulmonary Embolism Present on Admission: No
[2022-09-08] MEDS: SILVER SULFADIAZINE 1% CREAM 400 GM 1 APPLIC TOP (14:42)
--- NOTE | 2022-09-08 15:16 | PC.NURSE ---
Patients leg dressings just done with sylvidine cream, kurlex, and janeth wraps. Patient given some dilaudid iv before procedure and tolerated well. He was just discharged to home, midline taken out and down to car with aids counselor.
[2022-09-09 02:37] LABS: C-Reactive Protein Quant 6.5 mg/dL (<1.0)
[2022-09-15 11:36] LABS: Fentanyl Positive (.); Fentanyl Confirmation >50000 pg/mL (Cutoff=500); Norfentanyl Positive (.); Norfentanyl Confirmation >90000 pg/mL (Cutoff=500)
== END 2022-09-08 15:16 | disposition home or self-care (01) | DRG 383 ==
LOC: ED 10:50 → AC 17:06 → ICU 18:25 → AC 09-05 20:15
PROVIDERS: Neuromusculoskeletal Medicine, Sports Medicine; Admitting Provider Student in an Organized Health Care Education/Training Program; Emergency Provider Emergency Medicine; Referring Provider Emergency Medicine; Visit Provider Student in an Organized Health Care Education/Training Program
DX: L03.115 Cellulitis of right lower limb (principal); N39.0 Urinary tract infection, site not specified; I87.8 Other specified disorders of veins; F11.13 Opioid abuse with withdrawal; F15.10 Other stimulant abuse, uncomplicated; K40.20 Bilateral inguinal hernia, without obstruction or gangrene, not specified as recurrent; B96.20 Unspecified Escherichia coli [E. coli] as the cause of diseases classified elsewhere; F17.200 Nicotine dependence, unspecified, uncomplicated; Z20.822 Contact with and (suspected) exposure to COVID-19
CPT/HCPCS: 36415; 36592; 74177; 76870; 80048; 80053; 80202; 80305; 80320; 80354; 81003; 81015; 83036; 83605; 83735; 84145; 85025; 86140; 87040; 87077; 87086; 87186; 87635; 87797; 93975; 99232; 99284; C9803; J0690; J0696; J1170; J1642; J1650; Q9967

== ENCOUNTER 2022-11-04 11:35 | Day surgery (SDC) | payer OTHER, MEDICAID, SELFPAY ==
[2022-09-04 18:21] VITALS: BMI 23.0
[2022-10-30 12:04] VITALS: BMI 23.7
[2022-11-04] VITALS (9 sets, daily range): BP systolic 114–139; BP diastolic 73–87; PULSE 75–102; RESP 12–20; TEMP 36–36.6; O2SAT 93–97; BMI 23.7
--- NOTE | 2022-11-04 12:15 | SUR.OPER ---
Supine on padded OR bed, head on pillow, arms secured on padded arm boards at <90 degrees abduction, legs uncrossed, safety belt at thigh, tape over blanket over lower legs.
--- NOTE | 2022-11-04 12:40 | PM.PREOP ---
Pre-operative Note Interval Note History & Physical reviewed/Exam performed by Physician: Yes Changes to H&P: No
[2022-11-04] MEDS: CEFAZOLIN 2 GM/100 ML PREMIX 100 ML IV (13:20)
[2022-11-04] MEDS: BUPIVACAINE LIPOSOME 266 MG/20 ML VIAL INJ (13:46)
[2022-11-04] MEDS: BUPIVACAINE 0.5% (PF) 10 ML VIAL INJ (13:48)
[2022-11-04] MEDS: LACTATED RINGERS 1,000 ML 120 ML IV (13:57)
--- NOTE | 2022-11-04 16:37 | PM.OP.1 ---
Operative Date/Time/Diagnoses Date of procedure: 11/04/22 Pre-op diagnosis: Large left inguinal hernia Post-op diagnosis: same Procedure & Clinicians Procedure: Left inguinal hernia repair-sliding type Same procedure as scheduled: Yes Indications: Large symptomatic left inguinal hernia Surgeon: Cecelia Lindsey Supervisor Tumbling And Rolling: Axel Flores Anesthesia Type: General and Local Operative Notes Findings: There was a very very large hernia sac on the left side in the indirect space. The direct space was a little floppy but there was no large hernia there. There was definitely bowel and abdominal contents within the sac however it was fully reducible. Specimen(s): none sent Procedure in detail: Patient was taken to the operating room and placed supine on the operating room table. A time-out was performed. Preoperative antibiotics administered. Bilateral SCDs were placed. General endotracheal anesthesia was induced. A attempt to minimize narcotic use was made. A local iliohypogastric block was made with a bupivacaine initially. The skin was also injected with bupivacaine prior to making an incision. An incision was made overlying the inguinal canal using a 10. Blade scalpel. This incision was then carried down through the subcutaneous tissues using electrocautery. The anterior oblique fascia was identified and incised with a 15. Blade scalpel. Metzenbaum scissors were then used to clear the underlying tissue and incise along the fibers to the external ring. The Weitlaner retractor was placed inside this layer and the hernia sac was large and easily apparent at this time. A [place] drain was placed around the sac and cord structures for retraction. There was some cremasteric muscles identified initially and dissection proceeded to pull the sac away from the cord structures. The process of this did take some time more than usual due to the size of the hernia. However there were no complications with it and the cord structures were identified and pulled down away from the sac. The sac was finally cleared away from the cord structures and was stuck and tied with 2-0 silk suture and ligated. The stump of the sac was then returned to the abdomen. Care was taken that all of the sac contents were placed intra-abdominally prior to this maneuver. Next the Bard 3 x 6 mesh was tacked to Bipin's ligament using a 3-0 Prolene suture. The Prolene suture was then run along the inguinal ligament to the internal ring. The mesh was cut and placed around the cord structures to create a new internal ring. The remaining 0 Prolene scrap was used to close this mesh around the cord structureso loosely. The excess mesh was cut from the end and the superior portion and was tucked underneath the external oblique fascia it was secured loosely in place with interrupted 0 Vicryl sutures. At this time 20 mL of Exparel was injected in the iliohypogastric region and in the internal oblique musculature as well as the skin around the incision. The external oblique fascia was then closed in a running fashion over top of the mesh repair. The Martha's fascia was closed with interrupted 3-0 Vicryl sutures. And then the skin was closed with running 4-0 Monocryl and dressed with Steri-Strips. The patient tolerated the procedure well and went in good condition to the postoperative care unit. Complications: none Post-operative Condition: stable Disposition: PACU Plan for aftercare: No narcotic prescription was provided. The patient was very comfortable and without pain due to the Exparel and bupivacaine block that was placed in the operating room. This plan had been discussed with the patient preoperatively and he was happy because he really is trying to stay in recovery for his narcotic abuse disorder.
--- NOTE | 2022-11-12 10:51 | PM.CALLCOV.1 ---
Call Coverage Note Note Date of Patient Contact: 11/12/22 Time of Patient Contact: 10:51 Narrative of Care Provided: Talked with Sister Zoe who is at work adn cannot talk. She will call house and have her daughter, who is with shaina call the offrice. She did say he is still feeling reallyl sick. He's not had a BM and also having difficulty urinating. I reviewed CT and both colon and bladder are full. There may be some thickening of bladder wall. I think Shaina needs an enema and miralax and probably a straight cath. Need to talk with my office staff on how to make this happen and maybe a stat uro referral?
== END 2022-11-04 15:54 | disposition home or self-care (01) ==
PROVIDERS: Referring Provider Surgery; Visit Provider Surgery
PROC: (CPT 49505; principal; 2022-11-04 12:30)
DX: K40.90 Unilateral inguinal hernia, without obstruction or gangrene, not specified as recurrent (principal)
CPT/HCPCS: 49505; C1781; C9290; J0690; J1100; J1885; J2704

== ENCOUNTER 2022-11-11 13:47 | Observation (INO) | payer OTHER, MEDICAID, SELFPAY ==
[2022-09-04 18:21] VITALS: BMI 23.0
[2022-11-11] VITALS (9 sets, daily range): BP systolic 111–155; BP diastolic 66–86; PULSE 60–75; RESP 16–18; TEMP 36.6–36.9; O2SAT 97–99; BMI 23.0
--- NOTE | 2022-11-11 15:52 | DI.CT.S_ITS ---
PROCEDURE: CT ABDOMEN PELVIS W CON INDICATIONS: IV contrast only/post left inguinal surgery/left testicular TECHNIQUE: After the administration of oral and IV contrast, axial sections were acquired from the lung bases to the pubic symphysis. Coronal and sagittal reformats were performed. For radiation dose reduction, the following was used: automated exposure control, adjustment of mA and/or kV according to patient size. COMPARISON: [facility], US, US SCROTUM, 09/04/2022, 11:40. [facility], US, US SCROTUM, 11/11/2022, 16:19. [facility], CT, CT ABDOMEN PELVIS W CON, 09/04/2022, 13:14. FINDINGS: Image quality: Excellent. Lung bases: Unremarkable. Small hiatal hernia. Heart: No significant findings. ABDOMEN: Liver: Unremarkable. Gallbladder: Unremarkable. Biliary ducts: Unremarkable. Pancreas: Unremarkable. Spleen: Unremarkable. Adrenal Glands: Unremarkable. Kidneys and Ureters: There is a 1 mm nonobstructive stone in left kidney. Stomach and Bowel: Stomach, small bowel loops, and colon are normal in caliber. There is a large amount of stool in colon. Peritoneum: No abnormal intraperitoneal fluid. No free air. Ventral Wall: No hernia. Abdominal Nodes: No retroperitoneal or mesenteric adenopathy by size criteria. Vessels: Aorta and inferior vena cava are normal in size. PELVIS: Pelvic Organs: Unremarkable. Bladder: Bladder wall is mildly thickened. Pelvic Nodes: There are mildly enlarged inguinal lymph nodes bilaterally. Miscellaneous: There is soft tissue edema in the left groin consistent with recent surgery. There is a large left hydrocele. There is edema in the left scrotal wall. Enlarged vessels are seen in the left scrotum. inguinal hernias are seen. Bones: Small indeterminate lucencies are again noted in iliac bones bilaterally. Degenerative disc and facet disease in lumbar spine. IMPRESSION: 1. Postsurgical changes in the left groin. No bowel containing left inguinal hernia. There is a large left hydrocele. Prominent enhancing vessels are seen in left scrotum, which is nonspecific and could be secondary to venous obstruction or inflammatory hyperemia. 2. Scrotal wall skin thickening suspicious for cellulitis. 3. Bilateral prominent inguinal lymph nodes, likely reactive. 4. Bladder wall is mildly thickened suggesting cystitis. Please correlate with urinalysis. 5. A large amount of stool in colon. Dictated by: Go Silva M.D. on 11/11/2022 at 17:54 Approved by: Go Silva M.D. on 11/11/2022 at 18:11
--- NOTE | 2022-11-11 15:53 | DI.US.S_ITS ---
PROCEDURE: US SCROTUM INDICATIONS: Left scrotal swelling TECHNIQUE: Real-time scanning was performed of the scrotum and testicles, with image documentation. Color and pulse Doppler interrogation was performed of both testicles. COMPARISON: [facility], CT, CT ABDOMEN PELVIS W CON, 09/04/2022, 13:14. [facility], US, US SCROTUM, 09/04/2022, 11:40. FINDINGS: Right: Testicle is normal in size at 3.8 x 2.6 x 3.1 cm, and homogenous in echotexture. Epididymis is normal in overall size and morphology. There is a 7 mm left epididymal cyst. No hydrocele or varicoceles. No varicoceles. There is a small right hydrocele. Overlying scrotal skin is normal in thickness. Left: Testicle is normal in size at 3.5 x 2.8 x 2.8 cm, and homogeneous in echotexture. Epididymis is normal in overall size and morphology. A questionable complex mass is visualized within the right scrotum, superior and posterior to the testicle. Overlying scrotal skin is normal in thickness. Doppler: Color and pulse Doppler demonstrate normal and symmetric arterial flow in both testicles. IMPRESSION: 1. Sonographic findings suspicious for bowel herniated into the left scrotum. 2. Normal bilateral testicular blood flow. Dictated by: Nicole Rae M.D. on 11/11/2022 at 16:59 Approved by: Nicole Rae M.D. on 11/11/2022 at 17:03
--- NOTE | 2022-11-11 16:49 | ED_ITS ---
HPI - Male Genitourinary General Chief complaint: Abdominal Pain Stated complaint: post op hernia T-7 something is wrong Time Seen by Provider: 11/11/22 15:39 Source: patient Mode of arrival: Wheelchair History of Present Illness HPI Narrative: Patient is postop day 7 status post left inguinal hernia repair that was done here. Patient states he was doing well after the surgery but 3 days ago had left scrotal swelling. He states he thinks the hernia has returned. Before the surgery he would have reducible left inguinal hernia into the left scrotal sac. He states after the surgery this resolved. However it feels like it has ret urned. Related Data Home Medications Medication Instructions Recorded Confirmed methadone 130 mg PO DAILY 11/04/22 11/12/22 Previous Rx's Medication Instructions Recorded polyethylene glycol 3350 17 17 g PO TID-QID #238 grams 11/12/22 gram/dose oral powder (Miralax) psyllium husk (with sugar) 3.4 1 tbsp PO BID #822 grams 11/12/22 gram/7 gram oral powder (Fiber (psyllium husk-sugar)) tamsulosin 0.4 mg capsule 0.4 mg PO BEDTIME #30 caps 11/12/22 Allergies Allergy/AdvReac Type Severity Reaction Status Date / Time acetaminophen [From Tylenol] Allergy Verified 11/12/22 13:42 aspirin Allergy Verified 11/12/22 13:42 Penicillins Allergy Verified 11/12/22 13:42 Review of Systems Review of Systems Narrative: GENERAL: negative chills, fatigue, malaise, fever, sweats. HEENT: negative sinus pain, ear pain, sore throat RESPIRATORY: negative dyspnea, cough CARDIOVASCULAR: negative chest pain, palpitations GASTROINTESTINAL: negative nausea, vomiting, abdominal pain : negative dysuria, frequency, hematuria, positive scrotal swelling MUSCULOSKELETAL: negative muscle or bony pain SKIN: negative rash, skin lesions NEUROLOGIC: negative weakness, numbness ROS Unobtainable: All systems reviewed & are unremarkable except as noted in HPI and below Patient History Medical History (Updated 11/12/22 @ 15:24 by Cecelia Lindsey MD) Bilateral inguinal hernia without obstruction or gangrene Hepatitis C Kidney stones Surgical History H/O knee surgery H/O: knee surgery Social History marital status: unmarried,single details: PT. IS CURRENTLY A PT. AT A [facility], [facility] household members: family and none lives independently: No housing: other occupational status: previously employed and disabled Smoking Status: Current every day smoker alcohol intake: former substance use type: marijuana Smoking Status: Current every day smoker tobacco type: cigarettes alcohol intake frequency: holidays/special occasions only Substance Use Type: marijuana, heroin, sedatives, opiates, IV drugs, methamphetamine and other Exam Narrative Exam Narrative: GENERAL: in no distress, not toxic not dyspneic HEAD: Normocephalic. EYES: Pupils equal round ENT: Mucous membranes moist. NECK: Trachea midline. CARDIOVASCULAR: Regular rate and rhythm without murmurs RESPIRATORY: Clear to auscultation. Breath sounds equal bilaterally. No wheezes, rales, or rhonchi. GASTROINTESTINAL: Abdomen soft, non-tender, left inguinal incisional site is clean dry intact. No erythema. : Left scrotal sac is edematous and swollen with palpable mass. Mass is not reducible. No discoloration of scrotal sac. Glans penis visualized. No discoloration or cyanosis. No crepitus of the skin in the groin or scrotal area. NEURO: AOx4. SKIN: Warm and dry PSYCH: Not anxious, is cooperative Initial Vital Signs Initial Vital Signs: Vital Signs Temperature 97.8 F 11/11/22 14:03 Pulse Rate 75 11/11/22 14:03 Respiratory Rate 18 11/11/22 14:03 Blood Pressure 111/69 11/11/22 14:03 Pulse Oximetry 97 11/11/22 14:03 Oxygen Delivery Method Room Air 11/11/22 14:03 Course Orders Ordered: Discontinued Medications Lactated Ringer's (Lactated Ringers) 500 mls @ 1,000 mls/hr IV BOLUS ONE Stop: 11/11/22 16:21 Last Infusion: 11/11/22 18:09 Dose: 0 mls/hr Documented By: Admin: 11/11/22 17:32 Dose: 1,000 mls/hr Documented By: KATARZYNA Lactated Ringer's (Lactated Ringers) 1,000 mls @ 100 mls/hr IV CONT GILBERT Last Infusion: 11/11/22 18:15 Dose: 100 mls/hr Documented By: Admin: 11/11/22 18:09 Dose: 100 mls/hr Documented By: KATARZYNA Lactated Ringer's (Lactated Ringers) 1,000 mls @ 42 mls/hr IV CONT GILBERT Last Admin: 11/11/22 18:29 Dose: 42 mls/hr Documented By: HARJIT Naloxone HCl (Naloxone 0.4 Mg/Ml Vial) 0.2 mg IV Q2MIN PRN PRN Reason: Opiate Reversal Vital Signs Vital signs: Vital Signs - 8 hr 11/11/22 14:03 11/11/22 14:51 11/11/22 14:52 Temperature 97.8 F Pulse Rate 75 70 64 Respiratory Rate 18 Blood Pressure 111/69 Pulse Oximetry 97 97 98 Oxygen Delivery Method Room Air 11/11/22 14:52 11/11/22 15:00 11/11/22 15:00 Temperature Pulse Rate 67 Respiratory Rate Blood Pressure 124/71 117/66 Pulse Oximetry 97 Oxygen Delivery Method 11/11/22 15:30 11/11/22 15:30 11/11/22 16:00 Temperature Pulse Rate 60 63 Respiratory Rate Blood Pressure 117/70 Pulse Oximetry 98 98 Oxygen Delivery Method 11/11/22 16:01 11/11/22 16:01 11/11/22 17:44 Temperature Pulse Rate 63 74 Respiratory Rate Blood Pressure 155/69 H Pulse Oximetry 99 98 Oxygen Delivery Method 11/11/22 17:44 Temperature Pulse Rate Respiratory Rate Blood Pressure 142/74 H Pulse Oximetry Oxygen Delivery Method MDM - Male Genitourinary Lab Data 11/11/22 16:40 11/11/22 16:40 Labs: Lab Results 11/11/22 11/11/22 Range/Units 16:40 16:40 WBC 8.2 (4.5-11.0) X10^3/uL RBC 4.45 L (4.5-5.9) X10^6/uL Hgb 14.0 (13.5-17.5) g/dL Hct 41.2 (41-53) % MCV 92.5 (80-100) fL MCH 31.5 (26-34) PG MCHC 34.1 (30-36) % RDW 15.0 H (11.6-14.8) % Plt Count 289 (150-400) X10^3/uL Neut % (Auto) 56.1 (50-75) % Lymph % (Auto) 31.3 (25-40) % [place] % (Auto) 10.3 (3-14) % Eos % (Auto) 1.7 L (2-4) % Baso % (Auto) 0.6 (0-2) % Neut # (Auto) 4600 (4478-5147) /uL Lymph # (Auto) 2600 (9978-3804) /uL [place] # (Auto) 800 (0-900) /uL Eos # (Auto) 100 (0-450) /uL Baso # (Auto) 100 (0-100) /uL Sodium 135 L (137-145) mmol/L Potassium 4.5 (3.4-5.1) mmol/L Chloride 102 (98-107) mmol/L Carbon Dioxide 29 (22-32) mmol/L BUN 16 (9-20) mg/dL Creatinine 0.58 L (0.66-1.25) mg/dL Estimated GFR > 60 (>60) mL/min BUN/Creatinine Ratio 27.6 H (6-22) Glucose 74 (70-100) mg/dL Calcium 9.2 (8.4-10.2) mg/dL Total Bilirubin 0.6 (0.2-1.3) mg/dL AST 74 H (17-59) IU/L ALT 112 H (<50) IU/L Alkaline Phosphatase 97 (38-126) U/L Total Protein 8.1 (6.3-8.2) g/dL Albumin 4.2 (3.5-5.0) g/dL Globulin 3.9 (1.7-4.1) g/dL Albumin/Globulin Ratio 1.1 (1.0-2.8) Urine Dip Bedside Urine Glucose Negative Bedside Urine Bilirubin - Negative Bedside Urine Ketone - Negative Urine Specific [place] 1.010 Bedside Urine Occult Blood - Negative Bedside Urine pH 6.0 Bedside Urine Protein - Negative Bedside Urine Urobilinogen - Negative Bedside Urine Nitrite - Negative Bedside Urine Leukocytes - Negative Esterase Imaging Data Scrotal ultrasound: Radiologist's Impression: [address] [id number] Ultrasound Report Signed Patient: Rory Hickman MR#: [id number] : 1970 Acct:[id number] Age/Sex: 52 / M Date of Service: 11/11/22 Loc: ED Accession Number: [id number] ?? Procedure: US scrotum Ordering Provider: Dony Landis MD PROCEDURE:? US SCROTUM ? INDICATIONS:? Left scrotal swelling ? TECHNIQUE:? Real-time scanning was performed of the scrotum and testicles, with image documentation.? Color and pulse Doppler interrogation was performed of both testicles.? ? COMPARISON:? [facility], CT, CT ABDOMEN PELVIS W CON, 09/04/2022, 13:14.? [facility], [place], US SCROTUM, 09/04/2022, 11:40. ? FINDINGS:? ? Right:? Testicle is normal in size at 3.8 x 2.6 x 3.1 cm, and homogenous in echotexture.? Epididymis is normal in overall size and morphology.? There is a 7 mm left epididymal cyst.? No hydrocele or varicoceles.? No varicoceles.? There is a small right hydrocele.? Overlying scrotal skin is normal in thickness.? ? Left:? Testicle is normal in size at 3.5 x 2.8 x 2.8 cm, and homogeneous in echotexture.? Epididymis is normal in overall size and morphology.? A questionable complex mass is visualized within the right scrotum, superior and posterior to the testicle. Overlying scrotal skin is normal in thickness.? ? Doppler:? Color and pulse Doppler demonstrate normal and symmetric arterial flow in both testicles.? ? IMPRESSION:? ? 1. Sonographic findings suspicious for bowel herniated into the left scrotum. ? 2. Normal bilateral testicular blood flow.? ? Dictated by: Nicole Rae M.D. on 11/11/2022 at 16:59 ? ? Approved by: Nicole Rae M.D. on 11/11/2022 at 17:03 ? CT scan - abdomen/pelvis: Radiologist's Impression: [address] [address] [address] Scan Report Signed Patient: Rory Hickman MR#: [id number] : 1970 Acct:[id number] Age/Sex: 52 / M Date of Service: 11/11/22 Loc: [address] Accession Number: [id number] ?? Procedure: CT abdomen pelvis w con Ordering Provider: Dony Landis MD PROCEDURE:? CT ABDOMEN PELVIS W CON ? INDICATIONS:? IV contrast only/post left inguinal surgery/left testicular ? TECHNIQUE:? After the administration of oral and IV contrast, axial sections were acquired from the lung bases to the pubic symphysis.? Coronal and sagittal reformats were performed.? For radiation dose reduction, the following was used:? automated exposure control, adjustment of mA and/or kV according to patient size. ? COMPARISON:? [facility], SCROTUM, 09/04/2022, 11:40.? [facility], SCROTUM, 11/11/2022, 16:19.? [facility], [place], CT ABDOMEN PELVIS W CON, 09/04/2022, 13:14. ? FINDINGS:? Image quality:? Excellent.? ? Lung bases:? Unremarkable.? Small hiatal hernia.? Heart:? No significant findings. ? ? ABDOMEN: Liver:? Unremarkable.? ? Gallbladder:? Unremarkable.? ? Biliary ducts:? Unremarkable.? ? Pancreas:? Unremarkable.? ? Spleen:? Unremarkable.? ? Adrenal Glands:? Unremarkable.? ? Kidneys and Ureters:? There is a 1 mm nonobstructive stone in left kidney.? ? ? Stomach and Bowel:? Stomach, small bowel loops, and colon are normal in caliber.? There is a large amount of stool in colon. Peritoneum:? No abnormal intraperitoneal fluid.? No free air.? ? Ventral Wall: ? No hernia.? Abdominal Nodes:? No retroperitoneal or mesenteric adenopathy by size criteria.? Vessels:? Aorta and inferior vena cava are normal in size.? ? PELVIS: Pelvic Organs:? Unremarkable.? ? Bladder:? Bladder wall is mildly thickened.? ? Pelvic Nodes:? There are mildly enlarged inguinal lymph nodes bilaterally.? Miscellaneous:? There is soft tissue edema in the left groin consistent with recent surgery.? There is a large left hydrocele.? There is edema in the left scrotal wall.? Enlarged vessels are seen in the left scrotum.? inguinal hernias are seen. ? ? ? Bones:? Small indeterminate lucencies are again noted in iliac bones bilaterally.? Degenerative disc and facet disease in lumbar spine. ? ? IMPRESSION:? ? 1. Postsurgical changes in the left groin.? No bowel containing left inguinal hernia.? There is a large left hydrocele.? Prominent enhancing vessels are seen in left scrotum, which is nonspecific and could be secondary to venous obstruction or inflammatory hyperemia. ? 2. Scrotal wall skin thickening suspicious for cellulitis. ? 3. Bilateral prominent inguinal lymph nodes, likely reactive.? ? 4. Bladder wall is mildly thickened suggesting cystitis.? Please correlate with urinalysis. ? 5. A large amount of stool in colon.? Dictated by: Go Silva M.D. on 11/11/2022 at 17:54 ? ? Approved by: Go Silva M.D. on 11/11/2022 at 18:11 ? MDM Narrative Medical decision making narrative: Patient is postop day 7 status post left inguinal hernia repair that was done here. Patient states he was doing well after the surgery but 3 days ago had left scrotal swelling. He states he thinks the hernia has returned. Before the surgery he would have reducible left inguinal hernia into the left scrotal sac. He states after the surgery this resolved. However it feels like it has returned. After history and exam CBC CMP testicular ultrasound CT abdomen pelvis IV fluids [facility] CC: Left inguinal pain scrotal pain Complicating co-morbidities: Recent inguinal hernia surgery Data collected from: Patient and his niece Medical records reviewed: Operating notes from this facility November 04, 2022 Differential considered: Includes but not limited to inguinal hernia repair complication Exam documented above, pertinent findings include: Left scrotal mass Lab Test results independently reviewed as above. Pertinent findings: WBC 11 hemoglobin 13.8 hematocrit 40.2 sodium 136 potassium 4.7 Imaging studies independently reviewed: Scrotal ultrasound no testicular torsion, likely hernia present in scrotal sac CT abdomen pelvis large stool burden, possible cellulitis Consultations: 5:[address] Wolf, general surgeon, he will take patient to surgery Treatments: IV fluids Re-evaluations: Spoke with patient results, agrees for admission/surgery Discussion: Appropriate for admission for surgical repair of incarcerated hernia. Diagnosis: Incarcerated hernia Discharge Plan Departure Patient Disposition: Admitted to Surgery Clinical Impression: Incarcerated hernia Admit Date/Time: 11/11/22 17:53 Admit Provider: Jose J Wolf
[2022-11-11 17:08] LABS: Add Manual Diff / Slide Review NO; Basophils Absolute Auto 100 /uL (0-100); Basophils Percent Auto 0.6 % (0-2); Eosinophils Absolute Auto 100 /uL (0-450); Eosinophils Percent Auto 1.7 % (2-4); Hematocrit 41.2 % (41-53); Lymphocytes Absolute Auto 2600 /uL (1100-4500); Lymphocytes Percent Auto 31.3 % (25-40); Mean Corpuscular HGB Conc 34.1 % (30-36); Mean Corpuscular Hemoglobin 31.5 PG (26-34); Mean Corpuscular Volume 92.5 fL (80-100); Monocytes Absolute Auto 800 /uL (0-900); Monocytes Percent Auto 10.3 % (3-14); Neutrophils Absolute Auto 4600 /uL (1500-7000); Neutrophils Percent Auto 56.1 % (50-75); Platelet Count 289 X10^3/uL (150-400); Red Blood Cell Count 4.45 X10^6/uL (4.5-5.9); White Blood Cell Count 8.2 X10^3/uL (4.5-11.0)
[2022-11-11 17:14] LABS: Alanine Aminotransferase 112 IU/L (<50); Albumin 4.2 g/dL (3.5-5.0); Albumin Globulin Ratio 1.1 (1.0-2.8); Alkaline Phosphatase 97 U/L (38-126); Aspartate Aminotransferase 74 IU/L (17-59); BUN Creatinine Ratio 27.6 (6-22); Bilirubin Total 0.6 mg/dL (0.2-1.3); Blood Urea Nitrogen 16 mg/dL (9-20); Calcium 9.2 mg/dL (8.4-10.2); Carbon Dioxide 29 mmol/L (22-32); Chloride 102 mmol/L (98-107); Estimated Glomerular Filt Rate > 60 mL/min (>60); Globulin 3.9 g/dL (1.7-4.1); Glucose 74 mg/dL (70-100); HEMOLYSIS 35 (0-50); Potassium 4.5 mmol/L (3.4-5.1); Sodium 135 mmol/L (137-145); Total Protein 8.1 g/dL (6.3-8.2)
[2022-11-11] MEDS: LACTATED RINGERS 500 ML 1000 ML IV (17:32)
--- NOTE | 2022-11-11 17:54 | PM.HP.1 ---
History of Present Illness History of Present Illness Date Patient Seen: 11/11/22 Time Patient Seen: 17:55 Chief complaint: post op hernia T-7 something is wrong Narrative: 52-year-old man who underwent a open left inguinal hernia repair last week with Dr. Duque. He presented to the emergency department today with left scrotal pain. For the past 3 days he is had some scrotal swelling with increasing pain and today he became nauseous. Ultrasound of the scrotum demonstrates a bowel containing left inguinal hernia. Reduction was attempted in the emergency department but was not successful. [facility] Medical History Hepatitis C Kidney stones Surgical History H/O knee surgery H/O: knee surgery Social History marital status: unmarried,single details: PT. IS CURRENTLY A PT. AT A [facility], [facility] household members: none lives independently: No housing: other occupational status: previously employed and disabled Smoking Status: Current every day smoker alcohol intake: former substance use type: marijuana Meds Home Medications and Allergies Home Medications Medication Instructions Recorded Confirmed Type methadone 130 mg PO DAILY 11/04/22 11/04/22 History Allergies Allergy/AdvReac Type Severity Reaction Status Date / Time acetaminophen [From Tylenol] Allergy Verified 10/21/22 11:37 aspirin Allergy Verified 10/21/22 11:37 Penicillins Allergy Verified 10/21/22 11:37 Exam Vital Signs (past 8 hours): - 11/11/22 14:03 11/11/22 14:51 11/11/22 14:52 Temperature 97.8 F Pulse Rate 75 70 64 Respiratory Rate 18 Blood Pressure 111/69 Pulse Oximetry 97 97 98 Oxygen Delivery Method Room Air 11/11/22 14:52 11/11/22 15:00 11/11/22 15:00 Temperature Pulse Rate 67 Respiratory Rate Blood Pressure 124/71 117/66 Pulse Oximetry 97 Oxygen Delivery Method 11/11/22 15:30 11/11/22 15:30 11/11/22 16:00 Temperature Pulse Rate 60 63 Respiratory Rate Blood Pressure 117/70 Pulse Oximetry 98 98 Oxygen Delivery Method 11/11/22 16:01 11/11/22 16:01 Temperature Pulse Rate 63 Respiratory Rate Blood Pressure 155/69 H Pulse Oximetry 99 Oxygen Delivery Method Oxygen Delivery Method Room Air Narrative Exam Narrative: General adult man alert oriented no acute distress Chest nonlabored respiration Abdomen soft nontender nondistended. Scrotum fall firm tender to palpation non reducible left inguinal hernia. Objective Labs 11/11/22 16:40 11/11/22 16:40 Labs: Laboratory Results - last 24 hr 11/11/22 11/11/22 16:40 16:40 WBC 8.2 RBC 4.45 L Hgb 14.0 Hct 41.2 MCV 92.5 MCH 31.5 MCHC 34.1 RDW 15.0 H Plt Count 289 Neut % (Auto) 56.1 Lymph % (Auto) 31.3 [place] % (Auto) 10.3 Eos % (Auto) 1.7 L Baso % (Auto) 0.6 Neut # (Auto) 4600 Lymph # (Auto) 2600 [place] # (Auto) 800 Eos # (Auto) 100 Baso # (Auto) 100 Sodium 135 L Potassium 4.5 Chloride 102 Carbon Dioxide 29 BUN 16 Creatinine 0.58 L Estimated GFR > 60 BUN/Creatinine Ratio 27.6 H Glucose 74 Calcium 9.2 Total Bilirubin 0.6 AST 74 H ALT 112 H Alkaline Phosphatase 97 Total Protein 8.1 Albumin 4.2 Globulin 3.9 Albumin/Globulin Ratio 1.1 Assessment & Plan Assessment and plan (1) Incarcerated hernia: Status: Acute Assessment & Plan narrative: 52-year-old man 1 week status post open left inguinal hernia repair with a recurrent and incarcerated left inguinal hernia. I reviewed his imaging CT abdomen pelvis and scrotal US. CT on my review demonstrates bowel within the scrotum consistent with his exam and ultrasound findings. Recommended that we proceed to the operating room for repair given the risk for ischemic bowel. He is 1 week status post open repair and there is no particularly good operative repair. Given the hernia's large size and incarceration I suspect this is not amenable to laparoscopic repair. Will proceed with an open hernia repair possible laparotomy possible bowel resection. Operative risks including hemorrhage, infection, recurrence, chronic pain, anastomotic leak, damage to surrounding structures, stroke, heart attack and were discussed. Questions have been answered and he is in agreement with this plan. He provides his verbal consent to proceed. Open left inguinal hernia repair
[2022-11-11] MEDS: LACTATED RINGERS 1,000 ML 100 ML IV (18:09)
[2022-11-11] MEDS: LACTATED RINGERS 1,000 ML 42 ML IV (18:29)
--- NOTE | 2022-11-11 18:55 | SUR.HOLD ---
After review of CT scan by surgeon, decision made that patient does not need surgery and that patient's hernia is not incarcerated. Surgery canceled. Patient discharged home with sister.
== END 2022-11-11 19:11 | disposition home or self-care (01) ==
LOC: ED 15:39 → AC 18:00
PROVIDERS: Admitting Provider Surgery; Emergency Provider Emergency Medicine; Referring Provider Emergency Medicine; Visit Provider Surgery
DX: K40.91 Unilateral inguinal hernia, without obstruction or gangrene, recurrent (principal); Z98.890 Other specified postprocedural states
CPT/HCPCS: 36415; 74177; 76870; 80053; 81003; 85025; 93975; 96360; 99284; G0378; J0330; J2250; J2405; J2704; J3010; Q9967

== ENCOUNTER → 2022-11-12 14:50 | Outpatient (CLI) | payer OTHER, MEDICAID, SELFPAY ==
[2022-09-04 18:21] VITALS: BMI 23.0
[2022-11-12 16:14] LABS: Appearance Urine UA CLEAR; Bilirubin Urine UA NEGATIVE (NEGATIVE); Color Urine UA YELLOW; Glucose Urine UA NEGATIVE (Negative); Ketones Urine UA NEGATIVE (NEGATIVE); Leukocyte Esterase Urine UA NEGATIVE (NEGATIVE); Nitrite Urine UA NEGATIVE (Negative); Occult Blood Urine UA NEGATIVE (Negative); Protein Urine UA NEGATIVE (Negative); Specific Gravity Urine UA <=1.005 (1.000-1.035); Urobilinogen Urine UA 0.2 E.U./dL (0.2); pH Urine UA 6.5 (4.5-8.0)
[2022-11-12 16:38] LABS: Bacteria Urine None Seen; Culture Indicated Urine Cult Not Indicated; RBC Urine None Seen (0-5/HPF); Squamous Epithelial Cell Urine None Seen (0-5/HPF); WBC Urine None Seen (0-5/HPF)
== END ==
PROVIDERS: Visit Provider Surgery
DX: R33.9 Retention of urine, unspecified (principal); K59.00 Constipation, unspecified; Z68.23 Body mass index [BMI] 23.0-23.9, adult
CPT/HCPCS: 81001; 99215

== ENCOUNTER → 2022-11-24 11:04 | Outpatient (CLI) | payer OTHER, MEDICAID, SELFPAY ==
[2022-09-04 18:21] VITALS: BMI 23.0
--- NOTE | 2022-11-24 11:05 | DI.US.S_ITS ---
PROCEDURE: US SCROTUM INDICATIONS: SEVERE EDEMA/ PAIN IN TESTICLE TECHNIQUE: Real-time scanning was performed of the scrotum and testicles, with image documentation. Color and pulse Doppler interrogation was performed of both testicles. COMPARISON: [facility], CT, CT ABDOMEN PELVIS W CON, 09/04/2022, 13:14. [facility], CT, CT ABDOMEN PELVIS W CON, 11/11/2022, 16:15. [facility], US, US SCROTUM, 11/11/2022, 16:19. FINDINGS: Right: Testicle is normal in size at 3.8 x 2.0 x 2.8 cm, and homogenous in echotexture. Epididymis is normal in overall size and morphology. Small right hydrocele without varicoceles. Overlying scrotal skin is normal in thickness. Left: Testicle is normal in size at 3.0 x 2.7 x 3.0 cm, and homogeneous in echotexture. Epididymis is normal in overall size and morphology. Moderate to large sized complex left hydrocele. There appears to be moderate hyperemia of the spermatic cord. This correlates with CT findings obtained on November 11, 2022. Prominent vessels were also noted on comparison CT dated September 04, 2022. No definite focal soft tissue mass lesion. Overlying scrotal skin is thickened and mildly edematous. No focal fluid collection seen. Doppler: Color and pulse Doppler demonstrate normal and symmetric arterial flow in both testicles. IMPRESSION: 1. No sonographic evidence for testicular torsion. 2. Moderate-large sized complex left hydrocele with apparent hyperemia of the spermatic cord. No focal mass lesion identified. Prominent vessels was also present on comparison CT from September 04, 2022 but appears to have increased in prominence on the most recent CT dated November 11, 2022. Overlying soft tissue inflammation and mild thickening of the scrotal skin. Consider further evaluation with urology consultation. Dictated by: Silverio Villa M.D. on 11/24/2022 at 12:30 Approved by: Silverio Villa M.D. on 11/24/2022 at 12:48
== END ==
PROVIDERS: Referring Provider Surgery; Visit Provider Surgery
DX: N50.89 Other specified disorders of the male genital organs (principal); N43.3 Hydrocele, unspecified; N49.2 Inflammatory disorders of scrotum
CPT/HCPCS: 76870